=== PATIENT | male | born 1955 | race Caucasian/White ===

== ENCOUNTER 2024-01-29 10:03 | Inpatient (IN) | payer MEDICARE, MEDICAID, SELFPAY ==
[2024-01-29] VITALS (8 sets, daily range): BP systolic 134–151; BP diastolic 70–98; PULSE 74–86; RESP 16–26; TEMP 36.4–37.3; O2SAT 94–97; BMI 29.4
--- NOTE | ~2024-01-29 | XR_ITS ---
EXAMINATION: PORTABLE CHEST 1 VIEW CLINICAL INFORMATION: cough. COMPARISON: No recent pertinent prior studies are available for comparison. TECHNIQUE: Portable frontal view of the chest was obtained. FINDINGS: The lungs are hypoexpanded with mild peribronchial cuffing seen bilaterally. No focal infiltrate, effusion, edema, or pneumothorax. Cardiac and mediastinal silhouettes are within normal limits for technique. No acute bony abnormality seen. XR/XR chest 1V IMPRESSION: Hypoexpanded with mild peribronchial cuffing seen bilaterally. This could be seen in the setting of reactive or small airways disease.
--- NOTE | 2024-01-29 10:13 | ECG_ITS ---
Test Reason : SOB Blood Pressure : / mmHG Vent. Rate : 073 BPM Atrial Rate : 073 BPM P-R Int : 198 ms QRS Dur : 082 ms QT Int : 380 ms P-R-T Axes : 060 035 058 degrees QTc Int : 418 ms Artifact Normal sinus rhythm Normal ECG No previous ECGs available Referred By: Darwin Helton Electronically Signed By:William Piedra
--- NOTE | 2024-01-29 10:15 | ED.SOB ---
HPI - SOB/Dyspnea General Chief Complaint: Dyspnea Stated Complaint: SOB Time Seen by Provider: 01/29/24 10:12 Source: EMS Mode of arrival: EMS History of Present Illness HPI Narrative: This is 68 years old male sent from long term with a chief complaint of shortness of breath, cough. Patient was placed on BiPAP by the paramedics because found to be hypoxic and in distress. Arrived with the BiPAP Patient has history of CVA, hypertension, schizophrenia, dysphagia, and COPD. . MD elicited complaint: shortness of breath and cough Onset (ago): day(s) (1) Timing: constant Severity: moderate Exacerbating factors: nothing Relieving factors: oxygen Associated symptoms: denies other symptoms Related Data Home Medications ?Medication ?Instructions ?Recorded ?Confirmed acetaminophen 325 mg tablet 650 mg PO Q6H PRN Fever Or Pain 01/29/24 01/29/24 aluminum-mag hydroxide-simethicone 30 ml PO QID PRN GERD 01/29/24 01/29/24 200 mg-200 mg-20 mg/5 mL oral susp amlodipine 10 mg tablet 10 mg PO DAILY 01/29/24 01/29/24 aspirin 81 mg capsule 81 mg PO DAILY 01/29/24 01/29/24 calcium carbonate 500 mg PO QIDACHS 01/29/24 01/29/24 clozapine 25 mg tablet (Clozaril) 75 mg PO BEDTIME 01/29/24 01/29/24 eucalyptus-menthol oral mucosal 1 niesha mucous membrane Q4H PRN Cough 01/29/24 01/29/24 lozenge fluphenazine HCl 10 mg tablet 10 mg PO DAILY 01/29/24 01/29/24 hydralazine 10 mg tablet 10 mg PO TID 01/29/24 01/29/24 lithium carbonate 450 mg 450 mg PO DAILY 01/29/24 01/29/24 tablet,extended release metoprolol succinate 50 mg 50 mg PO BID 01/29/24 01/29/24 tablet,extended release 24 hr mometasone 220 mcg/actuation(14 1 inh inhalation DAILY 01/29/24 01/29/24 doses) breath activated powder inhaler (Asmanex Twisthaler) multivitamin 1 tab PO DAILY 01/29/24 01/29/24 nicotine (polacrilex) 2 mg buccal 2 mg buccal Q1H PRN Smoking 01/29/24 01/29/24 lozenge Cessation pantoprazole 40 mg tablet,delayed 40 mg PO DAILY@0630 01/29/24 01/29/24 release (Protonix) sennosides 8.6 mg tablet (senna) 8.6 mg PO DAILY PRN Constipation 01/29/24 01/29/24 Allergies Allergy/AdvReac Type Severity Reaction Status Date / Time codeine Allergy Unknown Unknown Verified 01/29/24 10:25 cephalexin [From Keflex] Allergy Unknown Verified 01/29/24 10:25 cocaine Allergy Unknown Verified 01/29/24 10:43 spironolactone Allergy Unknown Verified 01/29/24 10:25 Review of Systems Constitutional: Constitutional: Reports no additional constitutional complaints ENT: Reports system reviewed and no additional complaints, except as documented Cardiovascular: Cardiovascular: Reports no additional cardiovascular complaints Respiratory: Respiratory: Reports cough and Denies stridor [facility] Past Medical History [facility] Narrative: Schizophrenia, hypertension, CVA,,COPD Medical History GERD (gastroesophageal reflux disease) Hypertensive retinopathy Hyperlipidemia Aphasia Dysphagia CVA (cerebral vascular accident) Hemiplegia of 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 Urinary and fecal incontinence BPH w urinary obs/LUTS Hypertension Social History Social History Advance Directives: No Advance Directives Information Provided: No Do you have a plan to hurt others: No Plan Physical Exam Vital Signs: Vital Signs: Last Vital Signs Temp 97.6 F 01/29/24 12:09 Pulse 74 01/29/24 12:09 Resp 16 01/29/24 12:09 BP 148/95 H 01/29/24 12:09 Pulse Ox 94 01/29/24 12:09 O2 Del Method Nasal Cannula 01/29/24 12:09 O2 Flow Rate 2 01/29/24 12:09 Oxygen Flow Rate 3 01/29/24 10:24 BMI result Body Mass Index 29.4 Patient is in iosg-no-nvwdnadt distress on the BiPAP Const: General: well developed and alert Nutritional Appearance: overweight HEENT: Head: Yes normal to inspection General nose exam: Normal external nose present Face and sinus: Yes normal facial exam Neck: Neck: Yes normal visual inspection Chest: Chest palpation & inspection: normal inspection of the chest Resp: Effort & Inspection: Actively coughing Auscultation: rhonchi Cardio: Jugular venous distension: no JVD Palpation: normal PMI Rate: regular rate Rhythm: regular rhythm GI: Inspection: Yes normal to inspection Palpation (GI): Soft to palpation Skin: General skin exam: no rashes or lesions noted Neuro: General: other (Awake alert ) Medications Administered Generic Name Dose Route Start Last Admin Trade Name Freq PRN Reason Stop Dose Admin Enoxaparin Sodium 40 mg 01/29/24 12:45 01/29/24 15:01 Enoxaparin Sodium 40 Mg/0.4 Ml Syringe SUBCUT 40 mg Q24H ZEFERINO Administration Sodium Chloride 1,000 mls @ 100 mls/hr 01/29/24 12:45 01/29/24 13:11 Ns IVCONT 100 mls/hr .Q10H ZEFERINO Administration Methylprednisolone Sodium Succinate 40 mg 01/29/24 12:45 01/29/24 15:01 Methylprednisolone Sod Succ 40 Mg/Ml Vial IVPUSH 40 mg Q12H ZEFERINO Administration Discontinued Medications Generic Name Dose Route Start Last Admin Trade Name Freq PRN Reason Stop Dose Admin Albuterol Sulfate 2.5 mg/ 0 mg 01/29/24 10:39 01/29/24 11:13 Albuterol/Ipratropium 3 ml INHALE 01/29/24 10:40 5 dose ONCE ONE Administration Doxycycline Hyclate 100 mg/ 250 mls @ 166.67 mls/hr 01/29/24 11:23 01/29/24 12:14 Sodium Chloride IV 01/29/24 12:52 166.67 mls/hr ONCE ONE Administration Medical Decision Making Medical Decision Making [facility] Narrative: Patient presented with shortness of breath pleasant BiPAP at the by the vocal performer will do chest x-ray Differential Diagnosis Differential Diagnoses: The differential diagnosis associated with the presentation includes Pneumonia/CHF/pleural effusion Consult Healthcare Provider Management of the patient was discussed with: Hospitalist Lab Data [facility] Lab Attestation statement: I reviewed the patient's lab results. 01/29/24 10:38 01/29/24 10:38 Labs: Lab Results 01/29/24 01/29/24 01/29/24 Range/Units 10:38 10:41 11:57 WBC 17.4 H (4.8-10.8) X10*3/uL RBC 4.38 L (4.60-5.80) X10*6/uL Hgb 13.1 L (14.0-18.0) g/dl Hct 39.5 L (42.0-52.0) % MCV 90.2 (80.0-98.0) fL MCH 29.9 (27.0-33.0) pg MCHC 33.2 (31.0-36.0) g/dl RDW 13.1 (11.0-16.0) % Plt Count 309 (160-400) X10*3/uL MPV 9.2 L (9.4-12.4) fL Immature Gran % (Auto) 0.5 H (0.0-0.4) % Neut % (Auto) 83.0 H (45-73) % Lymph % (Auto) 5.8 L (20-40) % [place] % (Auto) 8.6 (2-11) % Eos % (Auto) 1.8 (0-4) % Baso % (Auto) 0.3 (0-2) % Lymph # (Auto) 1.0 L (1.2-4.9) X10*3/uL [place] # (Auto) 1.5 H (0.1-1.2) X10*3/uL Eos # (Auto) 0.3 (0.0-0.4) X10*3/uL Baso # (Auto) 0.1 (0.0-0.2) X10*3/uL Abs Immat Gran (auto) 0.09 H (0.00-0.03) X10*3/uL Absolute Neuts (auto) 14.4 H (2.0-8.3) x10*3/uL Absolute Nucleated RBC 0.000 (0.0-0.012) X10*3/uL Nucleated RBC % (auto) 0.0 (0.0-0.2) /100WBC VBG pH 7.42 (7.32-7.43) VBG pCO2 44 mmHg VBG pO2 66 mmHg VBG HCO3 28 H (22-26) mmol/L VBG O2 Saturation 91.0 % VBG Base Excess 3.7 mmol/L Sodium 141 (135-145) mmol/L Potassium 4.1 (3.3-5.1) mmol/L Chloride 107 (96-108) mmol/L Carbon Dioxide 24 (22-29) mmol/L Anion Gap 14 (12-20) BUN 27 H (9-16) mg/dL Creatinine 2.09 H (0.5-1.4) mg/dL Estim Creat Clear Calc 36.5 Estimated GFR 32 Random Glucose 140 H (60-115) mg/dL Lactic Acid 0.6 (0.5-2.0) mmol/L Calcium 10.3 H (8.4-10.2) mg/dL Total Bilirubin 0.2 (0.0-1.0) mg/dL AST 11 (5-37) U/L ALT 11 (0-40) U/L Alkaline Phosphatase 79 (39-117) U/L Troponin I High Sens 3.8 (<3.5-35.0) ng/L B-Natriuretic Peptide 52 (<100) pg/mL Total Protein 8.2 H (6.5-8.0) g/dL Albumin 4.0 (3.5-5.0) g/dL COVID-19 (DOTTY) Negative (Negative) COVID-19 Clin Com See Note ABG Data Attestation ABG: I personally reviewed and interpreted this ABG as follows: Interpretation: Mild hypoxia Independent Interpretation I performed an independent interpretation of an: Plain X-Ray Radiology Impression Discussion of test interpretation with radiology: I have reviewed the radiologist's reading. Independent Historian Clinical information obtained from an independent historian. History obtained from or confirmed by: EMS long term record Tests considered The following testing was considered but not selected: ct scan chest Critical Care Time Critical Care Time Critical Care Time: Yes Total Critical Care Time: 60 Attestation: Patient was placed in BiPAP at a vocal performer arrived on BiPAP Discharge Plan Discharge Clinical Impression: Acute dyspnea Patient Disposition: Admitted As Inpatient Interventions: Admission Worksheet (ED) Last Done: 01/29/24 14:43
[2024-01-29 10:44] LABS: MANUAL DIFF FLAG NO
[2024-01-29 10:46] LABS: Basophils Absolute Auto 0.1 X10*3/uL (0.0-0.2); Basophils Percent Auto 0.3 % (0-2); Eosinophils Absolute Auto 0.3 X10*3/uL (0.0-0.4); Eosinophils Percent Auto 1.8 % (0-4); Hematocrit 39.5 % (42.0-52.0); Hemoglobin 13.1 g/dl (14.0-18.0); Imm Gran Abs Auto 0.09 X10*3/uL (0.00-0.03); Imm Gran Pct Auto 0.5 % (0.0-0.4); Lymphocytes Percent Auto 5.8 % (20-40); Mean Corpuscular HGB Conc 33.2 g/dl (31.0-36.0); Mean Corpuscular Hemoglobin 29.9 pg (27.0-33.0); Mean Corpuscular Volume 90.2 fL (80.0-98.0); Mean Platelet Volume 9.2 fL (9.4-12.4); Monocytes Absolute Auto 1.5 X10*3/uL (0.1-1.2); Monocytes Percent Auto 8.6 % (2-11); Neutrophils Absolute Auto 14.4 x10*3/uL (2.0-8.3); Platelet Count 309 X10*3/uL (160-400); Red Blood Count 4.38 X10*6/uL (4.60-5.80); Red Cell Distribution Width 13.1 % (11.0-16.0); White Blood Count 17.4 X10*3/uL (4.8-10.8)
[2024-01-29 10:48] LABS: Venous Blood Gas Refer to POC result
[2024-01-29 10:50] LABS: VBG Base Excess 3.7 mmol/L; VBG HCO3 28 mmol/L (22-26); VBG pCO2 44 mmHg; VBG pH 7.42 (7.32-7.43); VBG pO2 66 mmHg
[2024-01-29 11:00] LABS: Alanine Aminotransferase 11 U/L (0-40); Alkaline Phosphatase 79 U/L (39-117); Anion Gap 14 (12-20); Aspartate Amino Transferase 11 U/L (5-37); Bilirubin Total 0.2 mg/dL (0.0-1.0); Blood Urea Nitrogen 27 mg/dL (9-16); Calcium 10.3 mg/dL (8.4-10.2); Carbon Dioxide 24 mmol/L (22-29); Chloride 107 mmol/L (96-108); Creatinine Clr Calc Pharmacy 36.5; Estimated Glomerular Filt Rate 32; Glucose Random 140 mg/dL (60-115); Potassium 4.1 mmol/L (3.3-5.1); Sodium 141 mmol/L (135-145); Total Protein 8.2 g/dL (6.5-8.0)
[2024-01-29 11:06] LABS: B Type Natriuretic Peptide 52 pg/mL (<100)
[2024-01-29 11:07] LABS: Troponin-I High Sensitivity 3.8 ng/L (<3.5-35.0)
[2024-01-29] MEDS: Albuterol Sulfate 2.5 MG, Albuterol/Iprat 2.5/0.5MG 3 ML 3 ML INHALE (11:13)
--- NOTE | 2024-01-29 11:15 | PC.NURSE ---
upon arrival, patient found to be 95% on 3L - respiratory at bedside. respiratory able to suction patient and remove clear thick sputum. IV established, labs obtained and sent. patient history of dysphagia/aphasia difficult to understand patient.
[2024-01-29 11:47] LABS: COVID-19 Test Negative (Negative); IDNOW Serial# 6674DD1D
[2024-01-29 12:12] LABS: Lactic Acid 0.6 mmol/L (0.5-2.0)
--- NOTE | 2024-01-29 12:13 | P.HPHOSP_ITS ---
History of Present Illness Date of Service: 01/29/24 Attending physician on admission: [facility] Chief Complaint: sob, cough 68-year-old male with history of 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, GERD, BPH with LUTS, urinary and fecal incontinence, schizophrenia, aphasia, chronic dysphagia, hypertension, hyperlipidemia, hypertensive retinopathy and CKD stage 3 who presented to the ED via EMS from [facility] where he resides for evaluation of right upper lobe bronchi, cough, and increased work of breathing noted this morning. The patient is aphasic at baseline is unable to provide history. History obtained from [facility] chart and ED provider. On arrival, the patient was on BiPAP but has been weaned to 2 L supplemental O2 via nasal cannula maintaining oximetry 94%. He was initially tachypneic but afebrile and no hypotension. He has leukocytosis of 17.4. Creatinine 2.09, baseline unknown, BUN 27. Electrolyte levels normal. Glucose 140. Lactic acid 0.6. Troponin 3.8, BNP 52. Negative for COVID-19. Chest x-ray shows hyperexpanded mild peribronchial cuffing seen bilaterally. In the ED, has received DuoNeb and doxycycline. 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 Urinary and fecal incontinence BPH w urinary obs/LUTS Hypertension Social History Housing: Senior Living Patient Tobacco Use Status: Former Tobacco user Use of substances other than those prescribed or required for medical reasons: Unable to respond Advance Directives: No Advance Directives Information Provided: No Do you have a plan to hurt others: No Plan Meds Allergies Allergy/AdvReac Type Severity Reaction Status Date / Time codeine Allergy Unknown Unknown Verified 01/29/24 10:25 cephalexin [From Keflex] Allergy Unknown Verified 01/29/24 10:25 cocaine Allergy Unknown Verified 01/29/24 10:43 spironolactone Allergy Unknown Verified 01/29/24 10:25 Active Medications: Current Medications Doxycycline Hyclate 100 mg/ (Sodium Chloride) 250 mls @ 166.67 mls/hr IV ONCE ONE Stop: 01/29/24 12:52 Home Medications ?Medication ?Instructions ?Recorded ?Confirmed ?Last Taken ?Type acetaminophen 325 mg tablet 650 mg PO Q6H PRN Fever Or Pain 01/29/24 01/29/24 Unknown History aluminum-mag hydroxide-simethicone 30 ml PO QID PRN GERD 01/29/24 01/29/24 Unknown History 200 mg-200 mg-20 mg/5 mL oral susp amlodipine 10 mg tablet 10 mg PO DAILY 01/29/24 01/29/24 01/29/24 06:30 History aspirin 81 mg capsule 81 mg PO DAILY 01/29/24 01/29/24 01/29/24 06:30 History calcium carbonate 500 mg PO QIDACHS 01/29/24 01/29/24 01/29/24 08:00 History clozapine 25 mg tablet (Clozaril) 75 mg PO BEDTIME 01/29/24 01/29/24 01/28/24 21:00 History eucalyptus-menthol oral mucosal 1 niesha mucous membrane Q4H PRN Cough 01/29/24 01/29/24 Unknown History lozenge fluphenazine HCl 10 mg tablet 10 mg PO DAILY 01/29/24 01/29/24 01/29/24 06:00 History hydralazine 10 mg tablet 10 mg PO TID 01/29/24 01/29/24 01/29/24 06:00 History lithium carbonate 450 mg 450 mg PO DAILY 01/29/24 01/29/24 01/29/24 06:30 History tablet,extended release metoprolol succinate 50 mg 50 mg PO BID 01/29/24 01/29/24 01/29/24 08:00 History tablet,extended release 24 hr mometasone 220 mcg/actuation(14 1 inh inhalation DAILY 01/29/24 01/29/24 01/28/24 20:00 History doses) breath activated powder inhaler (Asmanex Twisthaler) multivitamin 1 tab PO DAILY 01/29/24 01/29/24 01/29/24 06:30 History nicotine (polacrilex) 2 mg buccal 2 mg buccal Q1H PRN Smoking 01/29/24 01/29/24 01/28/24 08:15 History lozenge Cessation pantoprazole 40 mg tablet,delayed 40 mg PO DAILY@0630 01/29/24 01/29/24 01/29/24 06:30 History release (Protonix) sennosides 8.6 mg tablet (senna) 8.6 mg PO DAILY PRN Constipation 01/29/24 01/29/24 Unknown History Physical Exam 2 Vital Signs and Narrative: Vital Signs: Last Vital Signs Temp 97.6 F 01/29/24 12:09 Pulse 74 01/29/24 12:09 Resp 16 01/29/24 12:09 BP 148/95 H 01/29/24 12:09 Pulse Ox 94 01/29/24 12:09 O2 Del Method Nasal Cannula 01/29/24 12:09 O2 Flow Rate 2 01/29/24 12:09 Oxygen Flow Rate 3 01/29/24 10:24 BMI result Body Mass Index 29.4 Constitutional - Awake and Alert, No apparent distress Eyes - PERRLA, EOMI Cardiovascular - S1S2, RRR, No edema Respiratory - Normal lung expansion, Normal respiratory effort, No respiratory distress, audile gurgling, difficulty clearing throat, weak cough, bilteral rhonchi Gastrointestinal - NT / ND; +BS; No rebound or guarding Extremities - no calf tenderness bilaterally, no swelling Skin - Warm/Dry Neurological - Alert & nonverbal Results Labs 01/30/24 07:24 01/30/24 07:24 Labs: Laboratory Results - last 24 hr 01/29/24 01/29/24 01/29/24 10:38 10:41 11:57 MCV 90.2 MCH 29.9 MCHC 33.2 RDW 13.1 Plt Count 309 MPV 9.2 L Immature Gran % (Auto) 0.5 H Neut % (Auto) 83.0 H Lymph % (Auto) 5.8 L [place] % (Auto) 8.6 Eos % (Auto) 1.8 Baso % (Auto) 0.3 Lymph # (Auto) 1.0 L [place] # (Auto) 1.5 H Eos # (Auto) 0.3 Baso # (Auto) 0.1 Abs Immat Gran (auto) 0.09 H Absolute Neuts (auto) 14.4 H Absolute Nucleated RBC 0.000 Nucleated RBC % (auto) 0.0 VBG pH 7.42 VBG pCO2 44 VBG pO2 66 VBG HCO3 28 H VBG O2 Saturation 91.0 VBG Base Excess 3.7 Anion Gap 14 Estim Creat Clear Calc 36.5 Estimated GFR 32 Random Glucose 140 H Lactic Acid 0.6 Calcium 10.3 H Total Bilirubin 0.2 AST 11 ALT 11 Alkaline Phosphatase 79 Troponin I High Sens 3.8 B-Natriuretic Peptide 52 Total Protein 8.2 H Albumin 4.0 COVID-19 (DOTTY) Negative COVID-19 Clin Com See Note Imaging Radiologist's Impressions: Impressions Chest X-Ray 01/29/24 10:55 IMPRESSION: Hypoexpanded with mild peribronchial cuffing seen bilaterally. This could be seen in the setting of reactive or small airways disease. Assessment and Plan (1) Acute hypoxemic respiratory failure: Status: Acute (2) Aspiration into airway: Status: Acute Plan 68-year-old male with history of 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, GERD, BPH with LUTS, urinary and fecal incontinence, schizophrenia, aphasia, chronic dysphagia, hypertension, hyperlipidemia, hypertensive retinopathy and CKD stage 3 admitted for further management of acute hypoxemic respiratory failure due to suspected aspiration #acute hypoxemic respiratory failure due to suspected aspiration -leukocytosis 17.6. Tachypnea due to respiratory distress from aspiration resolved following bipap, no sepsis -Weaned from bipap, continue supplemental O2, wean as tolerated per protocol -CXR shows small airway disease. Pt refuses chest ct but suspect developing aspiration pnuemonia/pneumonitis -IV unasyn to cover for aspiration pneumonia given leukocytosis and productive cough (initiated 01/28) -IV methylprednisolone 40 mg bid -duonebs q4h -nasal suction prn/chest physiotherapy -keep npo for now, systems architect eval pending. On IVF for now. Per paperwork, on regular diet/thin liquids at baseline -follow cbc/cultures #HTN -continue hydralazine, metoprolol, amlodipine #GERD -tums prn, ppi #Schizophrenia -continue home meds DVT prophylaxis- lovenox full code Guardian- Angela Escobedo [phone] Pt requires inpt stay at least 2 midnights for management of acute hypoxemic respiratory failure with respiratory distress initially requiring bipap and will require iv abx/steroids for suspected evolving aspiration pneumonia/pneumonitis and close monitoring of respiratory status to monitor for and prevent decompensation. Quality Stroke Does the patient have a stroke diagnosis?: No VTE Prior VTE?: No VTE Risk Level:: Medical - moderate - high VTE Device Contraindication: Treatment Not Indicated VTE Drug Contraindication: N/A - Med Ordered
[2024-01-29] MEDS: Doxycycline Hyclate 100 MG in 0.9 % Sodium Chloride 250 ML 166.67 MG IV (12:14)
[2024-01-29] MEDS: 0.9 % Sodium Chloride 1,000 ML 100 ML IVCONT ×2 (13:11→22:47)
--- NOTE | 2024-01-29 13:50 | PHA.MEDREC ---
Pharmacy Consult ? Medication Reconciliation Pharmacy has completed the medication reconciliation. Used list from [facility].
--- NOTE | 2024-01-29 14:40 | PC.NURSE ---
patient continues to rest quietly in room, doxy still infusing at this time d/t patients bending his arm.
[2024-01-29] MEDS: methylPREDNISolone Sod Succ 40 MG/ML VIAL IVPUSH (15:01)
[2024-01-29] MEDS: Enoxaparin Sodium 40 MG/0.4 ML SYRINGE SUBCUT (15:01)
[2024-01-29] MEDS: Ampicillin Sodium/Sulbactam Na 3 GM in 0.9 % Sodium Chloride 100 ML IV ×2 (15:34→22:43)
[2024-01-29] MEDS: Albuterol/Iprat 2.5/0.5MG 3 ML AMPUL.NEB INHALE ×2 (16:29→19:32)
[2024-01-30] VITALS (12 sets, daily range): BP systolic 137–164; BP diastolic 83–98; PULSE 69–93; RESP 16–22; TEMP 36.2–36.9; O2SAT 93–96
[2024-01-30] MEDS: methylPREDNISolone Sod Succ 40 MG/ML VIAL IVPUSH ×2 (00:36→12:41)
[2024-01-30] MEDS: Ampicillin Sodium/Sulbactam Na 3 GM in 0.9 % Sodium Chloride 100 ML IV ×4 (03:36→21:53)
[2024-01-30 07:46] LABS: Basophils Percent Auto 0.1 % (0-2); Hematocrit 37.5 % (42.0-52.0); Hemoglobin 12.2 g/dl (14.0-18.0); Imm Gran Abs Auto 0.11 X10*3/uL (0.00-0.03); Imm Gran Pct Auto 0.6 % (0.0-0.4); Lymphocytes Absolute Auto 0.7 X10*3/uL (1.2-4.9); Lymphocytes Percent Auto 4.3 % (20-40); MANUAL DIFF FLAG SCAN; Mean Corpuscular HGB Conc 32.5 g/dl (31.0-36.0); Mean Corpuscular Volume 92.1 fL (80.0-98.0); Mean Platelet Volume 9.4 fL (9.4-12.4); Monocytes Absolute Auto 0.2 X10*3/uL (0.1-1.2); Monocytes Percent Auto 1.3 % (2-11); Neutrophils Percent Auto 93.7 % (45-73); Platelet Count 316 X10*3/uL (160-400); Red Blood Count 4.07 X10*6/uL (4.60-5.80); Red Cell Distribution Width 13.1 % (11.0-16.0); SCAN SMEAR FLAG 1
[2024-01-30 08:04] LABS: Anion Gap 13 (12-20); Blood Urea Nitrogen 28 mg/dL (9-16); Calcium 9.5 mg/dL (8.4-10.2); Carbon Dioxide 20 mmol/L (22-29); Chloride 114 mmol/L (96-108); Creatinine Clr Calc Pharmacy 41.7; Estimated Glomerular Filt Rate 37; Glucose Random 153 mg/dL (60-115); Potassium 4.3 mmol/L (3.3-5.1); Sodium 143 mmol/L (135-145)
[2024-01-30 08:06] LABS: SLIDE REVIEW VERIFIED
[2024-01-30 08:25] LABS: Appearance Urine Clear; Color Urine Yellow; Glucose Urine UA Negative (Negative); Leukocyte Esterase Urine Negative (Negative); Nitrite Urine Negative (Negative); UMIC TRIGGER UACC YES; Urine Blood Negative (Negative); Urine Ketones Negative (Negative); Urine Protein 30 (1+) mg/dL (Neg-Trace)
[2024-01-30 08:30] LABS: Bacteria Urine None Seen (None Seen); RBC Urine 0-2 /HPF (0-2); Squamous Epithelial Cell Urine 0-2 /HPF (0-2); WBC Urine 0-5 /HPF (0-5)
[2024-01-30] MEDS: Fluticasone Propionate 250 MCG BLST.W.DEV 1 PUFF INHALE ×2 (08:31→20:47)
[2024-01-30] MEDS: Albuterol/Iprat 2.5/0.5MG 3 ML AMPUL.NEB INHALE ×4 (08:31→20:47)
--- NOTE | 2024-01-30 09:14 | P.PNIM_ITS ---
Subjective Subjective Date of Service: 01/30/24 Interval History: f/u on acute hypoxic resp failure due to aspiration event/pna interval history: no respiratory distress, no hypoxia with oxygen. Physical Exam 2 Vital Signs: Vital Signs: Last Vital Signs Temp 97.8 F 01/30/24 08:00 Pulse 88 01/30/24 08:31 Resp 18 01/30/24 08:31 BP 164/89 H 01/30/24 08:00 Pulse Ox 93 01/30/24 08:00 O2 Del Method Nasal Cannula 01/30/24 08:00 O2 Flow Rate 3 01/30/24 08:00 Oxygen Flow Rate 3 01/29/24 10:24 BMI result Body Mass Index 29.4 Constitutional - Awake and Alert, No apparent distress , unable to converse with Cardiovascular - S1S2, RRR, No edema Respiratory - Normal lung expansion, Normal respiratory effort, no wheeze, diminished air entry sonam Gastrointestinal - NT / ND; +BS; No rebound or guarding Extremities - no calf tenderness bilaterally, no swelling Skin - Warm/Dry Neurological - Alert & nonverb at baseline with inaudible sounds Objective Data Active Medications Acetaminophen (Acetaminophen Supp 650 Mg Supp.Rect) 650 mg [place] Q6H PRN PRN Reason: Pain, Mild (Pain Scale 1-3), fever or headache Acetaminophen (Acetaminophen 325 Mg Tablet) 650 mg PO Q6H PRN PRN Reason: Fever Or Pain Al Hydroxide/Mg Hydroxide (Magnesium Hydrox/Alum Hydrox 30 Ml Oral.Susp) 30 ml PO QID PRN PRN Reason: GERD Albuterol/Ipratropium (Albuterol/Iprat 2.5/0.5mg 3 Ml Ampul.Neb) 3 ml INHALE RQ4H WHILE AWAKE [facility] Last Admin: 01/30/24 08:31 Dose: 3 ml Documented By: YVON Amlodipine Besylate (Amlodipine Besylate 10 Mg Tablet) 10 mg PO DAILY [facility]; Protocol Aspirin (Aspirin Enteric Coated 81 Mg Tablet.) 81 mg PO DAILY [facility] Calcium Carbonate (Calcium Carbonate 750 Mg Tab.Chew) 750 mg PO QIDACHS [facility] Last Admin: 01/29/24 23:12 Dose: Not Given Documented By: AD Non-Admin Reason: NPO Clozapine (Clozapine 25 Mg Tablet) 75 mg PO BEDTIME [facility] Last Admin: 01/29/24 23:13 Dose: Not Given Documented By: AD Non-Admin Reason: NPO Enoxaparin Sodium (Enoxaparin Sodium 40 Mg/0.4 Ml Syringe) 40 mg SUBCUT Q24H [facility] Last Admin: 01/29/24 15:01 Dose: 40 mg Documented By: EUGENIA Fluphenazine HCl (Fluphenazine Hcl 5 Mg Tablet) 10 mg PO DAILY [facility] Fluticasone Propionate (Fluticasone Propionate 250 Mcg Blst.W.Dev) 1 puff INHALE RBID [facility] Last Admin: 01/30/24 08:31 Dose: 1 puff Documented By: YVON Hydralazine HCl (Hydralazine Hcl 10 Mg Tablet) 10 mg PO TID [facility]; Protocol Last Admin: 01/29/24 23:13 Dose: Not Given Documented By: AD Non-Admin Reason: NPO Sodium Chloride (Ns) 1,000 mls @ 100 mls/hr IVCONT .Q10H [facility] Last Admin: 01/29/24 22:47 Dose: 100 mls/hr Documented By: OWEN Ampicillin Sodium/Sulbactam (Sodium 3 gm/ Sodium Chloride) 100 mls @ 200 mls/hr IV Q6H [facility] Last Infusion: 01/30/24 04:36 Dose: Infused Documented By: CASS [place] Carbonate ([place] Carbonate Er 450 Mg Tablet.Er) 450 mg PO DAILY [facility] Magnesium Hydroxide (Milk Of Magnesia 30 Ml Oral.Susp) 30 ml PO DAILY PRN PRN Reason: Constipation Methylprednisolone Sodium Succinate (Methylprednisolone Sod Succ 40 Mg/Ml Vial) 40 mg IVPUSH Q12H [facility] Last Admin: 01/30/24 00:36 Dose: 40 mg Documented By: AD Metoprolol Succinate (Metoprolol Succinate Er 50 Mg Tab.Er.24h) 50 mg PO BID [facility]; Protocol Last Admin: 01/29/24 23:13 Dose: Not Given Documented By: AD Non-Admin Reason: NPO Multivitamins/Vitamin C (Multivitamin Tablet) 1 tab PO DAILY [facility] Nicotine Polacrilex (Nicotine Polacrilex Lozenge 2 Mg Lozenge) 2 mg BUCCAL Q1H PRN PRN Reason: Smoking Cessation Omeprazole (Omeprazole 20 Mg Capsule.Dr) 20 mg PO DAILY@0630 [facility] Last Admin: 01/30/24 05:38 Dose: Not Given Documented By: AD Non-Admin Reason: NPO Ondansetron HCl (Ondansetron Hcl 4 Mg/2 Ml Vial) 4 mg IVPUSH Q8H PRN PRN Reason: Nausea and Vomiting Senna (Sennosides 8.6 Mg Tablet) 8.6 mg PO DAILY PRN PRN Reason: Constipation Labs 01/30/24 07:24 01/30/24 07:24 Labs: Laboratory Results - last 24 hr 01/29/24 01/29/24 01/29/24 10:38 10:41 11:57 MCV 90.2 MCH 29.9 MCHC 33.2 RDW 13.1 Plt Count 309 MPV 9.2 L Immature Gran % (Auto) 0.5 H Neut % (Auto) 83.0 H Lymph % (Auto) 5.8 L [place] % (Auto) 8.6 Eos % (Auto) 1.8 Baso % (Auto) 0.3 Lymph # (Auto) 1.0 L [place] # (Auto) 1.5 H Eos # (Auto) 0.3 Baso # (Auto) 0.1 Abs Immat Gran (auto) 0.09 H Absolute Neuts (auto) 14.4 H Absolute Nucleated RBC 0.000 Nucleated RBC % (auto) 0.0 Smear Tech's Comments VBG pH 7.42 VBG pCO2 44 VBG pO2 66 VBG HCO3 28 H VBG O2 Saturation 91.0 VBG Base Excess 3.7 Anion Gap 14 Estim Creat Clear Calc 36.5 Estimated GFR 32 Random Glucose 140 H Lactic Acid 0.6 Calcium 10.3 H Total Bilirubin 0.2 AST 11 ALT 11 Alkaline Phosphatase 79 Troponin I High Sens 3.8 B-Natriuretic Peptide 52 Total Protein 8.2 H Albumin 4.0 Urine Color Urine Appearance Urine pH Ur Specific [place] Urine Protein Urine Glucose (UA) Urine Ketones Urine Blood Urine Nitrite Ur Leukocyte Esterase Urine RBC Urine WBC Ur Squamous Epith Cells Urine Bacteria Hyaline Casts COVID-19 (DOTTY) Negative COVID-19 Clin Com See Note 01/30/24 01/30/24 07:24 07:50 MCV 92.1 MCH 30.0 MCHC 32.5 RDW 13.1 Plt Count 316 MPV 9.4 Immature Gran % (Auto) 0.6 H Neut % (Auto) 93.7 H Lymph % (Auto) 4.3 L [place] % (Auto) 1.3 L Eos % (Auto) 0.0 Baso % (Auto) 0.1 Lymph # (Auto) 0.7 L [place] # (Auto) 0.2 Eos # (Auto) 0.0 Baso # (Auto) 0.0 Abs Immat Gran (auto) 0.11 H Absolute Neuts (auto) 16.0 H Absolute Nucleated RBC 0.000 Nucleated RBC % (auto) 0.0 Smear Tech's Comments VERIFIED VBG pH VBG pCO2 VBG pO2 VBG HCO3 VBG O2 Saturation VBG Base Excess Anion Gap 13 Estim Creat Clear Calc 41.7 Estimated GFR 37 Random Glucose 153 H Lactic Acid Calcium 9.5 D Total Bilirubin AST ALT Alkaline Phosphatase Troponin I High Sens B-Natriuretic Peptide Total Protein Albumin Urine Color Yellow Urine Appearance Clear Urine pH 6.0 Ur Specific [place] 1.020 Urine Protein 30 (1+) H Urine Glucose (UA) Negative Urine Ketones Negative Urine Blood Negative Urine Nitrite Negative Ur Leukocyte Esterase Negative Urine RBC 0-2 Urine WBC 0-5 Ur Squamous Epith Cells 0-2 Urine Bacteria None Seen Hyaline Casts 3-5 COVID-19 (DOTTY) COVID-19 Clin Com Assessment and Plan (1) SHYANN (acute kidney injury): Status: Acute (2) Acute hypoxemic respiratory failure: Status: Acute (3) Aspiration into airway: Status: Acute (4) Acute dyspnea: Status: Acute Plan 68-year-old male with history of 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, GERD, BPH with LUTS, urinary and fecal incontinence, schizophrenia, aphasia, chronic dysphagia, hypertension, hyperlipidemia, hypertensive retinopathy and CKD stage 3 admitted for further management of acute hypoxemic respiratory failure due to suspected aspiration #acute hypoxemic respiratory failure due to suspected aspiration PNA, CXR show airway disease, did not cooperate with CT chest -leukocytosis 17 unchanged (possibly due to steroid), Tachypnea due to respiratory distress from aspiration resolved following bipap, no sepsis -O2 with goal of 92 to 94% -IV unasyn to cover for aspiration pneumonia, monitor wbc -IV methylprednisolone 40 mg bid and luis armando rapidly -duonebs q4h -nasal suction prn/chest physiotherapy -dysphagia diet per SLT NND2, honey thick liquid #HTN -continue hydralazine, metoprolol, amlodipine and adjust as needed #GERD -tums prn, ppi #Schizophrenia -continue home meds DVT prophylaxis- lovenox full code Guardian- Angela Escobedo [phone] need for inpatient: management of acute hypoxemic respiratory failure with respiratory distress initially requiring bipap and will require iv abx/steroids for suspected evolving aspiration pneumonia/pneumonitis and close monitoring of respiratory status to monitor for and prevent decompensation. Quality Stroke Does the patient have a stroke diagnosis?: No VTE Prior VTE?: No VTE Risk Level:: Medical - moderate - high VTE Device Contraindication: Treatment Not Indicated VTE Drug Contraindication: N/A - Med Ordered
--- NOTE | 2024-01-30 09:16 | MHC.SL.SWA ---
Speech Pathologist Impression: Risk of aspiration, oropharyngeal dysphagia Risk of Aspiration Due to: Neurological Condition Dysphasia Diet Status: UPGRADE from NPO, start on NDD2/HTL Liquid Consistency and Strategies for Safe Swallow: Liquid Intake Recommendation: Honey Thick Liquid Intake Strategies: Small Sips No Straws Solid Food Consistency: Dietary Recommendations: Grnd/Mech Altered (NDD2) Additional Modifications to Solid Foods: Recommend UPGRADE from NPO, start on GROUND/MECH ALTERED (NDD2) diet with HONEY THICK liquids, pills to be CRUSHED in PUREE. Patient is able to feed himself, but evidences some impulsivity when left alone with food. Recommend direct supervision at meal time as well as standard aspiration precautions. Oral Medication Intake: Crushed with Puree Please contact the pharmacy regarding appropriate crushable or liquid drug formulations that are available whenever modified delivery is recommended. Compensatory Strategies and Precautions to be Taken for Safe Swallow: Sitting Upright (90 deg) No Straw Small Bites and Sips Alternate Liquids/Solids Rate of Ingestion Change Avoid Specific Foods Supervision While Eating and Drinking for Safe Swallow: Total Supervision (1:1) Foods to Avoid: Hard, sticky foods; mixed textures Swallowing Recommended Treatments: Compens. Strategy Educat. Recommendation for Speech: Inpatient Speech Therapy Comment: M-F PRN Frequency/Duration: Date Range for Service Req: Timeline to reassess: Veterinary Technician Assistant Clinican/Clinical Fellow: No Supervisory Statement: I have reviewed and agree with the student/clinical fellow's documentation: N/A Speech Language Pathologist: Daily Ocampo M.A., CCC-VEHICLE UPHOLSTERER
[2024-01-30 09:22] LABS: Adenovirus PCR Not Detected (Not Detect.); Bordetella parapertussis PCR Not Detected (Not Detect.); Bordetella pertussis PCR Not Detected (Not Detect.); Chlamydia pneumoniae PCR Not Detected (Not Detect.); Coronavirus 229E PCR Not Detected (Not Detect.); Coronavirus HKU1 PCR Not Detected (Not Detect.); Coronavirus NL63 PCR Not Detected (Not Detect.); Coronavirus OC43 PCR Not Detected (Not Detect.); Human metapneumovirus PCR Not Detected (Not Detect.); Influenza A PCR Not Detected (Not Detect.); Influenza B PCR Not Detected (Not Detect.); Mycoplasma pneumoniae PCR Not Detected (Not Detect.); Parainfluenza 1 PCR Not Detected (Not Detect.); Parainfluenza 2 PCR Not Detected (Not Detect.); Parainfluenza 3 PCR Not Detected (Not Detect.); Parainfluenza 4 PCR Not Detected (Not Detect.); RSV PCR Not Detected (Not Detect.); Rhino/Enterovirus PCR Not Detected (Not Detect.)
[2024-01-30] MEDS: 0.9 % Sodium Chloride 1,000 ML 100 ML IVCONT ×2 (09:22→21:52)
[2024-01-30] MEDS: Multivitamin TABLET 1 TAB PO (09:25)
[2024-01-30] MEDS: Lithium Carbonate ER 450 MG TABLET.ER PO (09:25)
[2024-01-30] MEDS: Calcium Carbonate 750 MG TAB.CHEW PO ×4 (09:25→21:54)
[2024-01-30] MEDS: amLODIPine Besylate 10 MG TABLET PO (09:25)
[2024-01-30] MEDS: hydrALAZINE HCl 10 MG TABLET PO ×3 (09:26→21:56)
[2024-01-30] MEDS: Aspirin Enteric Coated 81 MG TABLET.DR PO (09:26)
[2024-01-30] MEDS: fluPHENAZine HCl 5 MG TABLET 10 MG PO (09:26)
[2024-01-30] MEDS: Metoprolol Succinate ER 50 MG TAB.ER.24H PO ×2 (09:26→21:54)
[2024-01-30 10:12] LABS: SARS-CoV-2 PCR Not Detected (Not Detect.)
--- NOTE | 2024-01-30 11:58 | MHC.CM.PN ---
IMM 01/29. IMM addressed with pts sister/guardian December as pt with dx aphasia, and schizophrenia. Pt is a LTC resident of [facility] [place]. Discharge plan is or pt to return there via BLS once medically cleared. Guardianship paperwork copy requested from facility and pts sister/guardian. PCP: Dr. Tera Newberry
[2024-01-30] MEDS: cloZAPine 25 MG TABLET 75 MG PO (21:56)
[2024-01-31] VITALS (11 sets, daily range): BP systolic 133–163; BP diastolic 82–100; PULSE 57–89; RESP 16–20; TEMP 36–36.5; O2SAT 91–100
[2024-01-31] MEDS: methylPREDNISolone Sod Succ 40 MG/ML VIAL IVPUSH ×2 (00:07→13:21)
[2024-01-31] MEDS: Omeprazole 20 MG CAPSULE.DR PO (06:06)
[2024-01-31] MEDS: Ampicillin Sodium/Sulbactam Na 3 GM in 0.9 % Sodium Chloride 100 ML IV ×4 (06:07→22:38)
[2024-01-31] MEDS: Multivitamin TABLET 1 TAB PO (08:43)
[2024-01-31] MEDS: Aspirin Enteric Coated 81 MG TABLET.DR PO (08:43)
[2024-01-31] MEDS: fluPHENAZine HCl 5 MG TABLET 10 MG PO (08:43)
[2024-01-31] MEDS: Lithium Carbonate ER 450 MG TABLET.ER PO (08:44)
[2024-01-31] MEDS: hydrALAZINE HCl 10 MG TABLET PO ×3 (08:44→20:06)
[2024-01-31] MEDS: Metoprolol Succinate ER 50 MG TAB.ER.24H PO (08:44)
[2024-01-31] MEDS: amLODIPine Besylate 10 MG TABLET PO (08:44)
[2024-01-31] MEDS: Calcium Carbonate 750 MG TAB.CHEW PO ×4 (08:44→20:13)
[2024-01-31] MEDS: Albuterol/Iprat 2.5/0.5MG 3 ML AMPUL.NEB INHALE ×3 (11:47→19:48)
[2024-01-31] MEDS: Enoxaparin Sodium 40 MG/0.4 ML SYRINGE SUBCUT (13:21)
[2024-01-31 14:12] LABS: Hematocrit 35.8 % (42.0-52.0); Hemoglobin 11.8 g/dl (14.0-18.0); Mean Corpuscular Hemoglobin 30.2 pg (27.0-33.0); Mean Corpuscular Volume 91.6 fL (80.0-98.0); Mean Platelet Volume 9.4 fL (9.4-12.4); Platelet Count 335 X10*3/uL (160-400); Red Blood Count 3.91 X10*6/uL (4.60-5.80); Red Cell Distribution Width 13.4 % (11.0-16.0); White Blood Count 20.3 X10*3/uL (4.8-10.8)
[2024-01-31 14:28] LABS: Anion Gap 15 (12-20); Blood Urea Nitrogen 31 mg/dL (9-16); Calcium 9.4 mg/dL (8.4-10.2); Carbon Dioxide 22 mmol/L (22-29); Chloride 112 mmol/L (96-108); Creatinine Clr Calc Pharmacy 44.9; Estimated Glomerular Filt Rate 40; Glucose Random 183 mg/dL (60-115); Potassium 4.7 mmol/L (3.3-5.1); Sodium 144 mmol/L (135-145)
--- NOTE | 2024-01-31 14:28 | MHC.SPEECHCO ---
Pt seen after lunch. He completed the Puree items and Honey-Thickened Liquids, but did not touch his Ground/[facility] Altered (NDD2) Solids. When asked if wanted something else and became upset asking that the tray be taken from his room. Pt is currently stable on his diet, WEB COORDINATOR will f/u x1 to re-assess feasibility of upgrade.
[2024-01-31] MEDS: Fluticasone Propionate 250 MCG BLST.W.DEV 1 PUFF INHALE (19:48)
[2024-01-31] MEDS: cloZAPine 25 MG TABLET 75 MG PO (20:06)
[2024-01-31] MEDS: Metoprolol Succinate ER 25 MG TAB.ER.24H PO (20:07)
[2024-01-31] MEDS: Magnesium Hydrox/Alum Hydrox 30 ML ORAL.SUSP PO (22:39)
[2024-02-01] VITALS (11 sets, daily range): BP systolic 142–155; BP diastolic 84–92; PULSE 63–85; RESP 18–20; TEMP 36.3–36.9; O2SAT 92–98
[2024-02-01] MEDS: methylPREDNISolone Sod Succ 40 MG/ML VIAL IVPUSH ×2 (01:46→12:21)
[2024-02-01] MEDS: Ampicillin Sodium/Sulbactam Na 3 GM in 0.9 % Sodium Chloride 100 ML IV ×2 (03:43→11:12)
[2024-02-01] MEDS: Omeprazole 20 MG CAPSULE.DR PO (05:25)
[2024-02-01 06:45] LABS: Hematocrit 35.3 % (42.0-52.0); Hemoglobin 11.5 g/dl (14.0-18.0); Mean Corpuscular HGB Conc 32.6 g/dl (31.0-36.0); Mean Corpuscular Hemoglobin 29.9 pg (27.0-33.0); Mean Corpuscular Volume 91.7 fL (80.0-98.0); Mean Platelet Volume 9.4 fL (9.4-12.4); Platelet Count 331 X10*3/uL (160-400); Red Blood Count 3.85 X10*6/uL (4.60-5.80); Red Cell Distribution Width 13.2 % (11.0-16.0); White Blood Count 17.9 X10*3/uL (4.8-10.8)
[2024-02-01 07:00] LABS: Anion Gap 12 (12-20); Blood Urea Nitrogen 33 mg/dL (9-16); Calcium 9.2 mg/dL (8.4-10.2); Carbon Dioxide 25 mmol/L (22-29); Chloride 110 mmol/L (96-108); Creatinine Clr Calc Pharmacy 42.1; Estimated Glomerular Filt Rate 37; Glucose Random 138 mg/dL (60-115); Potassium 4.9 mmol/L (3.3-5.1); Sodium 142 mmol/L (135-145)
[2024-02-01] MEDS: Lithium Carbonate ER 450 MG TABLET.ER PO (08:42)
[2024-02-01] MEDS: fluPHENAZine HCl 5 MG TABLET 10 MG PO (08:42)
[2024-02-01] MEDS: Metoprolol Succinate ER 25 MG TAB.ER.24H PO (08:42)
[2024-02-01] MEDS: hydrALAZINE HCl 10 MG TABLET PO ×2 (08:43→16:08)
[2024-02-01] MEDS: amLODIPine Besylate 10 MG TABLET PO (08:43)
[2024-02-01] MEDS: Multivitamin TABLET 1 TAB PO (08:43)
[2024-02-01] MEDS: Aspirin Enteric Coated 81 MG TABLET.DR PO (08:43)
[2024-02-01] MEDS: Fluticasone Propionate 250 MCG BLST.W.DEV 1 PUFF INHALE (09:01)
[2024-02-01] MEDS: Albuterol/Iprat 2.5/0.5MG 3 ML AMPUL.NEB INHALE ×3 (09:01→15:32)
[2024-02-01] MEDS: Calcium Carbonate 750 MG TAB.CHEW PO ×2 (11:12→16:08)
--- NOTE | 2024-02-01 11:31 | PM.DS ---
DS: Providers Provider Date of Service: 02/01/24 Date of admission: 01/29/24 12:43 Primary care physician: Tera Newberry DO DS: Diagnosis Discharge Diagnosis (1) SHYANN (acute kidney injury): Status: Acute (2) Acute hypoxemic respiratory failure: Status: Acute (3) Aspiration into airway: Status: Acute (4) Acute dyspnea: Status: Acute DS: Summary Hospital Course Hospital Course: Admission hpi Chief Complaint: sob, cough 68-year-old male with history of 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, GERD, BPH with LUTS, urinary and fecal incontinence, schizophrenia, aphasia, chronic dysphagia, hypertension, hyperlipidemia, hypertensive retinopathy and CKD stage 3 who presented to the ED via EMS from [facility] where he resides for evaluation of right upper lobe bronchi, cough, and increased work of breathing noted this morning. The patient is aphasic at baseline is unable to provide history. History obtained from [facility] chart and ED provider. On arrival, the patient was on BiPAP but has been weaned to 2 L supplemental O2 via nasal cannula maintaining oximetry 94%. He was initially tachypneic but afebrile and no hypotension. He has leukocytosis of 17.4. Creatinine 2.09, baseline unknown, BUN 27. Electrolyte levels normal. Glucose 140. Lactic acid 0.6. Troponin 3.8, BNP 52. Negative for COVID-19. Chest x-ray shows hyperexpanded mild peribronchial cuffing seen bilaterally. In the ED, has received DuoNeb and doxycycline. Hospital course: #Acute hypoxic respiratory failure due to aspiration pneumia. The patient presented with a cough and shortness of breath, raising concern for aspiration pneumonia. He was hypoxic and required O2. A chest X-ray (CXR) was suggestive of pneumonia, likely aspiration pneumonia. He was initiated on IV Unasyn and admitted for further management. Additional management included IV steroids for a reactive process likely related to aspiration and bronchodilators. A CT scan was suggested but could not be performed as the patient was uncooperative. His initial WBC was 17, which increased to 20 and has since decreased to 17. The persistent high WBC is likely due to the steroid treatment. He also has some baseline chronic leukocytosis; the last WBC prior to admission on 01/22 was 15 per the SNF record. At this point, he is doing much better and will transition to oral Augmentin for a total of 7 days. He was evaluated by CRM MARKETING EXECUTIVE, who recommended a NND2 (puree) diet and honey-thick liquids. #Leukocytosis--has some chronic element and likely higher from penumonia and steroid, this should be repeated on outpatient basis. #HTN -continue hydralazine, metoprolol, amlodipine #GERD -tums prn, ppi #Schizophrenia -continue home meds CKD 3B with mild SHYANN--baseline creatine is 1.8 according to SNF record, his initial creatine was 2 and now 1.8 Time Attestation Discharge Coordination Time (in mins): 40 Quality: Safe Use of Opioids Does Pt have an Active Cancer Diagnosis on the Problem List?: No Quality: Stroke Does the patient have a stroke diagnosis?: No Physical Exam Vital Signs: Vital Signs: Last Vital Signs Temp 98.4 F 02/01/24 11:26 Pulse 72 02/01/24 11:28 Resp 20 02/01/24 11:28 BP 148/84 H 02/01/24 11:26 Pulse Ox 95 02/01/24 11:26 O2 Del Method Nasal Cannula 02/01/24 11:26 O2 Flow Rate 2 02/01/24 11:26 Oxygen Flow Rate 3 01/29/24 10:24 BMI result Body Mass Index 29.4 Constitutional - Awake and Alert, No apparent distress , unable to converse with Cardiovascular - S1S2, RRR, No edema Respiratory - Normal lung expansion, Normal respiratory effort, no wheeze, diminished air entry sonam Gastrointestinal - NT / ND; +BS; No rebound or guarding Extremities - no calf tenderness bilaterally, no swelling Skin - Warm/Dry Neurological - Alert & nonverb at baseline with inaudible sounds DS: Data Data Completed and Pending Labs on day of discharge: Laboratory Results - last 24 hr 01/31/24 02/01/24 02/01/24 14:05 06:05 06:06 WBC 20.3 H 17.9 H RBC 3.91 L 3.85 L Hgb 11.8 L 11.5 L Hct 35.8 L 35.3 L MCV 91.6 91.7 MCH 30.2 29.9 MCHC 33.0 32.6 RDW 13.4 13.2 Plt Count 335 331 MPV 9.4 9.4 Absolute Nucleated RBC 0.000 0.000 Nucleated RBC % (auto) 0.0 0.0 Sodium 144 142 Potassium 4.7 4.9 Chloride 112 H 110 H Carbon Dioxide 22 25 Anion Gap 15 12 BUN 31 H 33 H Creatinine 1.70 H 1.81 H Estim Creat Clear Calc 44.9 42.1 Estimated GFR 40 37 Random Glucose 183 H 138 H Calcium 9.4 9.2 Preliminary micro results at discharge 01/29/24 10:38 Blood Culture - Preliminary Blood - Venous No growth after 48 hours. 01/29/24 10:38 Blood Culture - Preliminary Blood - Venous No growth after 48 hours. Discharge Plan Discharge Anticipated Discharge Date/Time: 02/01/24 11:37 Patient Disposition: Xfer SNF Discharge Diagnosis: Acute hypoxic respiratory failure due to aspiration pneumonia Referrals: Tera Newberry DO [Primary Care Provider] - 1 Week Discharge Medications: New amoxicillin-pot clavulanate 875-125 mg Tablet 1 tab PO Q12H Qty: 6 0RF Continued multivitamin Tablet 1 tab PO DAILY hydralazine 10 mg Tablet 10 mg PO TID sennosides [senna] 8.6 mg Tablet 8.6 mg PO DAILY PRN (Reason: Constipation) acetaminophen 325 mg Tablet 650 mg PO Q6H MDD 3g PRN (Reason: Fever Or Pain) metoprolol succinate 50 mg Tablet Extended Release 24 Hr 50 mg PO BID fluphenazine HCl 10 mg Tablet 10 mg PO DAILY lithium carbonate 450 mg Tablet Extended Release 450 mg PO DAILY amlodipine 10 mg Tablet 10 mg PO DAILY pantoprazole [Protonix] 40 mg Tablet,Delayed Release (Dr/Ec) 40 mg PO DAILY@0630 calcium carbonate 500 mg calcium (1,250 mg) Tablet,Chewable 500 mg PO QIDACHS Rx Instructions: with meals and at bedtime alum-mag hydroxide-simeth 200-200-20 mg/5 mL Suspension 30 ml PO QID PRN (Reason: GERD) Rx Instructions: administer after meals and at bedtime clozapine [Clozaril] 25 mg Tablet 75 mg PO BEDTIME eucalyptus-menthol Lozenge 1 niesha MUCOUS MEMBRANE Q4H PRN (Reason: Cough) nicotine (polacrilex) 2 mg Lozenge 2 mg BUCCAL Q1H PRN (Reason: Smoking Cessation) Asmanex Twisthaler 220 mcg/ actuation (14) Aerosol Powdr Breath Activated 1 inh INHALATION DAILY aspirin 81 mg Capsule 81 mg PO DAILY Discharge Orders: Discharge Order (Routine); Ordered 02/01/24 Ordered By: Ricki Olmedo Diet: NND2, honey thick liquid Activity on Discharge: As tolerated Stand Alone Forms: Patient Portal Discharge page Print Language: French Care Plan Goals: recovery from aspiration pneumonia aspiration prevention Health Concerns: Aspiration pneumonia and aspriation risks Plan of Treatment: Take Augmentin as recommendded and follow up with your PCP in a week Check CBC and BMP in a week Assessment: see above Discharge Date/Time: 02/01/24 18:18
--- NOTE | 2024-02-01 11:51 | HO.PM.IMPN ---
Subjective Subjective Date of Service: 01/31/24 Interval History: f/u on acute hypoxic resp failure due to aspiration event/pna interval history: doing ok, no sob Physical Exam Vital Signs: Vital Signs: Selected Entries 01/31/24 19:39 Temperature 97.7 F Pulse Rate 82 Respiratory Rate 20 Blood Pressure 139/95 H Pulse Oximetry 91 L Constitutional - Awake and Alert, No apparent distress , unable to converse with Cardiovascular - S1S2, RRR, No edema Respiratory - Normal lung expansion, Normal respiratory effort, no wheeze, diminished air entry sonam Gastrointestinal - NT / ND; +BS; No rebound or guarding Extremities - no calf tenderness bilaterally, no swelling Skin - Warm/Dry Neurological - Alert & nonverb at baseline with inaudible sounds Objective Data Active Medications Acetaminophen (Acetaminophen Supp 650 Mg Supp.Rect) 650 mg [place] Q6H PRN PRN Reason: Pain, Mild (Pain Scale 1-3), fever or headache Acetaminophen (Acetaminophen 325 Mg Tablet) 650 mg PO Q6H PRN PRN Reason: Fever Or Pain Al Hydroxide/Mg Hydroxide (Magnesium Hydrox/Alum Hydrox 30 Ml Oral.Susp) 30 ml PO QID PRN PRN Reason: GERD Last Admin: 01/31/24 22:39 Dose: 30 ml Documented By: INDU Albuterol/Ipratropium (Albuterol/Iprat 2.5/0.5mg 3 Ml Ampul.Neb) 3 ml INHALE RQ4H WHILE AWAKE [facility] Last Admin: 02/01/24 11:26 Dose: 3 ml Documented By: BUSTER Amlodipine Besylate (Amlodipine Besylate 10 Mg Tablet) 10 mg PO DAILY [facility]; Protocol Last Admin: 02/01/24 08:43 Dose: 10 mg Documented By: CICI Amoxicillin/Clavulanate Potassium (Amoxicillin/Potassium Clav 875 Mg Tablet) 875 mg PO Q12H [facility] Aspirin (Aspirin Enteric Coated 81 Mg Tablet.) 81 mg PO DAILY [facility] Last Admin: 02/01/24 08:43 Dose: 81 mg Documented By: CICI Calcium Carbonate (Calcium Carbonate 750 Mg Tab.Chew) 750 mg PO QIDACHS [facility] Last Admin: 02/01/24 11:12 Dose: 750 mg Documented By: CICI Clozapine (Clozapine 25 Mg Tablet) 75 mg PO BEDTIME [facility] Last Admin: 01/31/24 20:06 Dose: 75 mg Documented By: INDU Enoxaparin Sodium (Enoxaparin Sodium 40 Mg/0.4 Ml Syringe) 40 mg SUBCUT Q24H [facility] Last Admin: 01/31/24 13:21 Dose: 40 mg Documented By: KENZIE Fluphenazine HCl (Fluphenazine Hcl 5 Mg Tablet) 10 mg PO DAILY [facility] Last Admin: 02/01/24 08:42 Dose: 10 mg Documented By: CICI Fluticasone Propionate (Fluticasone Propionate 250 Mcg Blst.W.Dev) 1 puff INHALE RBID [facility] Last Admin: 02/01/24 09:01 Dose: 1 puff Documented By: BUSTER Hydralazine HCl (Hydralazine Hcl 10 Mg Tablet) 10 mg PO TID [facility]; Protocol Last Admin: 02/01/24 08:43 Dose: 10 mg Documented By: CICI [place] Carbonate ([place] Carbonate Er 450 Mg Tablet.Er) 450 mg PO DAILY [facility] Last Admin: 02/01/24 08:42 Dose: 450 mg Documented By: CICI Magnesium Hydroxide (Milk Of Magnesia 30 Ml Oral.Susp) 30 ml PO DAILY PRN PRN Reason: Constipation Methylprednisolone Sodium Succinate (Methylprednisolone Sod Succ 40 Mg/Ml Vial) 40 mg IVPUSH Q12H [facility] Last Admin: 02/01/24 01:46 Dose: 40 mg Documented By: INDU Metoprolol Succinate (Metoprolol Succinate Er 25 Mg Tab.Er.24h) 25 mg PO BID [facility]; Protocol Last Admin: 02/01/24 08:42 Dose: 25 mg Documented By: CICI Multivitamins/Vitamin C (Multivitamin Tablet) 1 tab PO DAILY [facility] Last Admin: 02/01/24 08:43 Dose: 1 tab Documented By: CICI Nicotine Polacrilex (Nicotine Polacrilex Lozenge 2 Mg Lozenge) 2 mg BUCCAL Q1H PRN PRN Reason: Smoking Cessation Omeprazole (Omeprazole 20 Mg Capsule.Dr) 20 mg PO DAILY@0630 [facility] Last Admin: 02/01/24 05:25 Dose: 20 mg Documented By: INDU Ondansetron HCl (Ondansetron Hcl 4 Mg/2 Ml Vial) 4 mg IVPUSH Q8H PRN PRN Reason: Nausea and Vomiting Senna (Sennosides 8.6 Mg Tablet) 8.6 mg PO DAILY PRN PRN Reason: Constipation Labs 02/01/24 06:06 02/01/24 06:05 Labs: Laboratory Results - last 24 hr 01/31/24 02/01/24 02/01/24 14:05 06:05 06:06 MCV 91.6 91.7 MCH 30.2 29.9 MCHC 33.0 32.6 RDW 13.4 13.2 Plt Count 335 331 MPV 9.4 9.4 Absolute Nucleated RBC 0.000 0.000 Nucleated RBC % (auto) 0.0 0.0 Anion Gap 15 12 Estim Creat Clear Calc 44.9 42.1 Estimated GFR 40 37 Random Glucose 183 H 138 H Calcium 9.4 9.2 Microbiology Microbiology Results: Microbiology 01/29/24 10:38 Blood Culture - Preliminary Blood - Venous No growth after 48 hours. 01/29/24 10:38 Blood Culture - Preliminary Blood - Venous No growth after 48 hours. Assessment and Plan (1) SHYANN (acute kidney injury): Status: Acute (2) Acute hypoxemic respiratory failure: Status: Acute (3) Aspiration into airway: Status: Acute Plan 68-year-old male with history of 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, GERD, BPH with LUTS, urinary and fecal incontinence, schizophrenia, aphasia, chronic dysphagia, hypertension, hyperlipidemia, hypertensive retinopathy and CKD stage 3 admitted for further management of acute hypoxemic respiratory failure due to suspected aspiration #acute hypoxemic respiratory failure due to suspected aspiration PNA, CXR show airway disease, did not cooperate with CT chest. Initially requied bipap in the ED -leukocytosis 17 higher due to steroid, -IV unasyn to cover for aspiration pneumonia, monitor wbc -IV methylprednisolone 40 mg bid and luis armando rapidly, dc by next day -duonebs q4h -nasal suction prn/chest physiotherapy -dysphagia diet per COFFEE HOST recommends NND2, honey thick liquid #HTN -continue hydralazine, metoprolol, amlodipine and adjust as needed #GERD -tums prn, ppi #Schizophrenia -continue home meds #CKD/mild shyann, resolved. DVT prophylaxis- lovenox full code Guardian- Angela Escobedo [phone] need for inpatient:management of aspriation PNA with IV Abx, Late entry for DOS: 01/31/24 Quality Stroke Does the patient have a stroke diagnosis?: No VTE Prior VTE?: No VTE Risk Level:: Medical - moderate - high VTE Device Contraindication: Treatment Not Indicated VTE Drug Contraindication: N/A - Med Ordered
[2024-02-01] MEDS: Amoxicillin/Potassium Clav 875 MG TABLET PO (12:21)
--- NOTE | 2024-02-01 13:27 | MHC.SL.SWA ---
Risk of Aspiration Due to: Neurological Condition Dysphasia Diet Status: NO CHANGE Liquid Consistency and Strategies for Safe Swallow: Liquid Intake Recommendation: Honey Thick Liquid Intake Strategies: Small Sips No Straws Solid Food Consistency: Dietary Recommendations: Grnd/Mech Altered (NDD2) Oral Medication Intake: Crushed with Puree Please contact the pharmacy regarding appropriate crushable or liquid drug formulations that are available whenever modified delivery is recommended. Compensatory Strategies and Precautions to be Taken for Safe Swallow: Sitting Upright (90 deg) No Straw Small Bites and Sips Alternate Liquids/Solids Rate of Ingestion Change Supervision While Eating and Drinking for Safe Swallow: Total Supervision (1:1) Foods to Avoid: Hard, sticky foods; mixed textures Swallowing Recommended Treatments: Compens. Strategy Educat. Recommendation for Speech: Inpatient Speech Therapy Comment: Recommend pt continue w/ GROUND/MECH ALTERED solids (NDD2) and HONEY THICK liquids (NO STRAW). Continue w/ pills crushed in puree at this time. Pt requires FULL SUPERVISION for ALL PO. Ensure pt is seated in upright position. Aspiration precautions apply. Risk of aspiration likely secondary to unsafe eating behaviors. TECHNOLOGY EDUCATION INSTRUCTOR to continue to follow during hospitalization. TECHNOLOGY EDUCATION INSTRUCTOR tx at next level of care to be recommended. [employer] Middleware Developer Clinican/Clinical Fellow: No Supervisory Statement: I have reviewed and agree with the student/clinical fellow's documentation: N/A Speech Language Pathologist: Jennifer Leach M.A., [facility]-TECHNOLOGY EDUCATION INSTRUCTOR
--- NOTE | 2024-02-01 14:01 | MHC.CM.PN ---
Pt continues to require acute care for treatment of aspiration pneumonia with IV ABX. DCP is for him to return to [facility] via [facility].
--- NOTE | 2024-02-01 14:46 | MHC.CM.PN ---
Pt has been medically cleared, he will return to [facility] today via BLS, guardian, Angela Escobedo notified via VM message.
== END 2024-02-01 18:18 | disposition intermediate care facility (04) | DRG 177 ==
LOC: HO.ED 11:52 → HO.EDOVER 13:03 → HO.IMC 14:35
PROVIDERS: Admitting Provider Physician Assistant; Emergency Provider Emergency Medicine; PCP Hospitalist; Visit Provider Internal Medicine
DX: J69.0 Pneumonitis due to inhalation of food and vomit (principal); J96.01 Acute respiratory failure with hypoxia; I69.351 Hemiplegia and hemiparesis following cerebral infarction affecting right dominant side; N17.9 Acute kidney failure, unspecified; I12.9 Hypertensive chronic kidney disease with stage 1 through stage 4 chronic kidney disease, or unspecified chronic kidney disease; N18.32 Chronic kidney disease, stage 3b; H35.039 Hypertensive retinopathy, unspecified eye; K21.9 Gastro-esophageal reflux disease without esophagitis; F20.9 Schizophrenia, unspecified; Z20.822 Contact with and (suspected) exposure to COVID-19; R13.10 Dysphagia, unspecified; Z87.891 Personal history of nicotine dependence; Z79.82 Long term (current) use of aspirin; Z79.899 Other long term (current) drug therapy
CPT/HCPCS: 36415; 71045; 80048; 80053; 81001; 82803; 83605; 83880; 84484; 85025; 85027; 87040; 87633; 87635; 92526; 92610; 93005; 94640; 99285; J0295; J1650; J2919

== ENCOUNTER → 2024-01-29 10:13 | Outpatient (BNV) | payer MEDICARE, MEDICAID, SELFPAY | PROVIDERS: Admitting Provider Physician Assistant; Emergency Provider Emergency Medicine; PCP Hospitalist; Visit Provider Internal Medicine Cardiovascular Disease | DX: R06.02 Shortness of breath (principal) | CPT/HCPCS: 93010 ==

== ENCOUNTER → 2024-01-29 12:43 | Outpatient (BNV) | payer MEDICARE, MEDICAID, SELFPAY | PROVIDERS: Admitting Provider Physician Assistant; Emergency Provider Emergency Medicine; PCP Hospitalist; Visit Provider Physician Assistant | DX: N17.9 Acute kidney failure, unspecified (principal); J96.01 Acute respiratory failure with hypoxia; T17.908A Unspecified foreign body in respiratory tract, part unspecified causing other injury, initial encounter; R06.00 Dyspnea, unspecified | CPT/HCPCS: 99223; 99232; 99239; 99499 ==

== ENCOUNTER 2024-07-07 23:33 | Emergency (ER) | payer MEDICARE, MEDICAID, SELFPAY ==
--- NOTE | 2024-07-07 | ECG_ITS ---
Test Reason : FALL Blood Pressure : / mmHG Vent. Rate : 058 BPM Atrial Rate : 058 BPM P-R Int : 218 ms QRS Dur : 078 ms QT Int : 412 ms P-R-T Axes : 073 028 049 degrees QTc Int : 404 ms Sinus bradycardia with 1st degree A-V block Otherwise normal ECG When compared with ECG of 29-JAN-2024 10:44, No significant change was found Referred By: Generic ED Physician Electronically Signed By:AGUILAR RAGSDALE MD
--- NOTE | ~2024-07-07 | XR_ITS ---
EXAMINATION: XR CHEST CLINICAL INFORMATION: Cough; history of fall. COMPARISON: Prior chest radiographs, most recently 01/29/2024. TECHNIQUE: Frontal view of the chest was obtained. FINDINGS: The heart, great vessels, pulmonary vasculature and mediastinum are normal. The lungs show no infiltrate, effusion or pneumothorax. Lung volumes are mildly diminished. No acute osseous abnormality is seen. Multiple old, healed rib fractures are again noted. XR/XR chest 1V IMPRESSION: No active cardiopulmonary disease. Lung volumes are mildly diminished. Electronically signed by: Jose Juan Alexis MD 07/08/2024 12:33 AM [facility]
[2024-07-07 23:39] VITALS: BP 170/120; PULSE 103; O2SAT 94
[2024-07-07 23:48] VITALS: BP 176/106; PULSE 65; RESP 20; TEMP 36.6; O2SAT 96; BMI 27.9
--- NOTE | 2024-07-08 00:06 | ED_ITS ---
HPI - General Adult General Chief complaint: General Medical Stated complaint: From Faciilty Fall at 430pm and elveated BP Time Seen by Provider: 07/08/24 00:05 Source: patient Limitations: other (Dysarthria secondary to CVA) History of Present Illness ED Provider: Val Hill PA-C HPI narrative: 68-year-old male with a history of CVA with subsequent aphasia, dysarthria, dysphagia and right hemiplegia now wheelchair-bound at baseline, hypertension, hyperlipidemia, hypertensive retinopathy, chronic kidney disease stage 3, schizophrenia, who presents from [facility] given concern for hypertension and hypoxia. Per EMS, the patient fell while transferring from his bed to the wheelchair. He dropped to the floor onto his bottom, there was no head strike there was no loss consciousness. The incident occurred at 4:30 p.m. yesterday. Prior to arrival, longterm report indicates that the patient was hypertensive to 163 systolic and that his ?oxygen was low?. Per the patient, he states they refused to give him his prescribed hydralazine today; the patient takes hydralazine 3 times a day, he only took his morning dose. At the patient has no physical concerns or complaints at this time, he does not understand why he was sent in for assessment. Related Data Home Medications ?Medication ?Instructions ?Recorded ?Confirmed acetaminophen 325 mg tablet 650 mg PO Q6H PRN Fever Or Pain 01/29/24 01/29/24 aluminum-mag hydroxide-simethicone 30 ml PO QID PRN GERD 01/29/24 01/29/24 200 mg-200 mg-20 mg/5 mL oral susp amlodipine 10 mg tablet 10 mg PO DAILY 01/29/24 01/29/24 aspirin 81 mg capsule 81 mg PO DAILY 01/29/24 01/29/24 calcium carbonate 500 mg PO QIDACHS 01/29/24 01/29/24 clozapine 25 mg tablet (Clozaril) 75 mg PO BEDTIME 01/29/24 01/29/24 eucalyptus-menthol oral mucosal 1 niesha mucous membrane Q4H PRN Cough 01/29/24 01/29/24 lozenge fluphenazine HCl 10 mg tablet 10 mg PO DAILY 01/29/24 01/29/24 hydralazine 10 mg tablet 10 mg PO TID 01/29/24 01/29/24 lithium carbonate 450 mg 450 mg PO DAILY 01/29/24 01/29/24 tablet,extended release metoprolol succinate 50 mg 50 mg PO BID 01/29/24 01/29/24 tablet,extended release 24 hr mometasone 220 mcg/actuation(14 1 inh inhalation DAILY 01/29/24 01/29/24 doses) breath activated powder inhaler (Asmanex Twisthaler) multivitamin 1 tab PO DAILY 01/29/24 01/29/24 nicotine (polacrilex) 2 mg buccal 2 mg buccal Q1H PRN Smoking 01/29/24 01/29/24 lozenge Cessation pantoprazole 40 mg tablet,delayed 40 mg PO DAILY@0630 01/29/24 01/29/24 release (Protonix) sennosides 8.6 mg tablet (senna) 8.6 mg PO DAILY PRN Constipation 01/29/24 01/29/24 Previous Rx's ?Medication ?Instructions ?Recorded amoxicillin 875 mg-potassium 1 tab PO Q12H #6 tabs 02/01/24 clavulanate 125 mg tablet Allergies Allergy/AdvReac Type Severity Reaction Status Date / Time codeine Allergy Unknown Unknown Verified 07/07/24 23:50 cephalexin [From Keflex] Allergy Unknown Verified 07/07/24 23:50 cocaine Allergy Unknown Verified 07/07/24 23:50 spironolactone Allergy Unknown Verified 07/07/24 23:50 Review of Systems Review of Systems: Yes all other systems are reviewed and are negative Constitutional: Constitutional: Denies fatigue, Denies fever(s) and Denies headache(s) Eyes: Eyes: Denies change in vision ENT: Denies headache(s) and Denies neck pain Cardiovascular: Cardiovascular: Denies chest pain and Denies dyspnea Respiratory: Respiratory: Denies chest congestion, Denies cough and Denies dyspnea Gastrointestinal: Gastrointestinal: Denies abdominal pain and Denies nausea Musculoskeletal: Musculoskeletal: Denies back pain and Denies neck pain Neurologic: Denies headache(s) Endocrine: Endocrine: Denies fatigue PMF Past Medical History Attestation statement: The following information was validated with the patient. Medical History GERD (gastroesophageal reflux disease) Hypertensive retinopathy Hyperlipidemia Aphasia Dysphagia CVA (cerebral vascular accident) Hemiplegia of 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 Urinary and fecal incontinence BPH w urinary obs/LUTS Hypertension Social History Social History Housing: [facility]way Patient Tobacco Use Status: Former Tobacco user Advance Directives: No Advance Directives Information Provided: Yes service: No Physical Exam ED Vital Signs: Vital Signs - 24 hr 07/07/24 23:48 Temperature 97.9 F Pulse Rate 65 Respiratory Rate 20 Blood Pressure 176/106 H Pulse Oximetry 96 Oxygen Delivery Method Room Air BMI result Body Mass Index 27.9 Const Other: Alert, no sign of head trauma on exam Orientation/consciousness: patient oriented x3 Resp Other: Nonlabored respiration Cardio Other: Normal peripheral perfusion Skin Other: Warm dry no rash Neuro Other: Dysarthria noted General: patient oriented x3, moves all extremities and no focal motor deficits Psych Other: Cooperative Medications Administered Discontinued Medications Generic Name Dose Route Start Last Admin Trade Name Freq PRN Reason Stop Dose Admin Hydralazine HCl 20 mg 07/08/24 00:17 07/08/24 00:39 Hydralazine Hcl 10 Mg Tablet PO 07/08/24 00:18 20 mg ONCE ONE Administration Protocol Medical Decision Making Medical Decision Making MDM Narrative: 68-year-old male with a history of CVA with subsequent aphasia, dysarthria, dysphagia and right hemiplegia now wheelchair-bound at baseline, hypertension, hyperlipidemia, hypertensive retinopathy, chronic kidney disease stage 3, schizophrenia, who presents from [facility] given concern for hypertension and hypoxia. Per EMS, the patient fell while transferring from his bed to the wheelchair. He dropped to the floor onto his bottom, there was no head strike there was no loss consciousness. The incident occurred at 4:30 p.m. yesterday. Prior to arrival, longterm report indicates that the patient was hypertensive to 163 systolic and that his ?oxygen was low?. Per the patient, he states they refused to give him his prescribed hydralazine today; the patient takes hydralazine 3 times a day, he only took his morning dose. At the patient has no physical concerns or complaints at this time, he does not understand why he was sent in for assessment. Problem: Prior stroke with deficits, psychiatric illness History: Per patient I have considered the following differential diagnoses: Rib fracture, pneumothorax, hemothorax, pneumonia, heart failure Plan: Per longterm report, the patient fell this afternoon while transferring from his bed to the wheelchair. This occurred at 4:30 p.m.. Unclear why he is being sent for medical assessment at 1 in the morning. They also noted that the patient was hypertensive in his oxygen was abnormally low. Patient indicates that they neglected to give him his prescribed hydralazine today, he is supposed to take it t.i.d., they gave only this morning. He is slightly hypertensive, we will give hydralazine. Furthermore, the patient is not hypoxic, he is between 95 and 96% on room air. Obtained a chest x-ray. There was no indication for the patient's assessment at this time, we will be transferring him back to the facility momentarily. I have independently reviewed the following tests: Chest x-ray: XR/XR chest 1V IMPRESSION: No active cardiopulmonary disease. Lung volumes are mildly diminished. Electronically signed by: Jose Juan Alexis MD 07/08/2024 12:33 AM [facility] Discharge Plan Discharge Clinical Impression: Hypertension Patient Disposition: Home, Self-Care Instructions: Chronic Hypertension (ED) Additional Instructions: The patient's blood pressure was minimally elevated here in the emergency department. He indicated to us that he was not administered his prescribed hydralazine; he is supposed to take that medication 3 times a day, he only received in the morning. He also was not hypoxic, we were given report that he was found to be hypoxic at your facility. He has been 95-96% on room air. We obtained a chest x-ray, it was normal. Prescriptions: No Action multivitamin Tablet 1 tab PO DAILY hydralazine 10 mg Tablet 10 mg PO TID sennosides [senna] 8.6 mg Tablet 8.6 mg PO DAILY PRN (Reason: Constipation) acetaminophen 325 mg Tablet 650 mg PO Q6H MDD 3g PRN (Reason: Fever Or Pain) metoprolol succinate 50 mg Tablet Extended Release 24 Hr 50 mg PO BID fluphenazine HCl 10 mg Tablet 10 mg PO DAILY lithium carbonate 450 mg Tablet Extended Release 450 mg PO DAILY amlodipine 10 mg Tablet 10 mg PO DAILY pantoprazole [Protonix] 40 mg Tablet,Delayed Release (Dr/Ec) 40 mg PO DAILY@0630 calcium carbonate 500 mg calcium (1,250 mg) Tablet,Chewable 500 mg PO QIDACHS Rx Instructions: with meals and at bedtime alum-mag hydroxide-simeth 200-200-20 mg/5 mL Suspension 30 ml PO QID PRN (Reason: GERD) Rx Instructions: administer after meals and at bedtime clozapine [Clozaril] 25 mg Tablet 75 mg PO BEDTIME eucalyptus-menthol Lozenge 1 niesha MUCOUS MEMBRANE Q4H PRN (Reason: Cough) nicotine (polacrilex) 2 mg Lozenge 2 mg BUCCAL Q1H PRN (Reason: Smoking Cessation) Asmanex Twisthaler 220 mcg/ actuation (14) Aerosol Powdr Breath Activated 1 inh INHALATION DAILY aspirin 81 mg Capsule 81 mg PO DAILY amoxicillin-pot clavulanate 875-125 mg Tablet 1 tab PO Q12H Qty: 6 0RF Print Language: Tristanian
[2024-07-08] MEDS: hydrALAZINE HCl 10 MG TABLET 20 MG PO (00:39)
[2024-07-08 00:47] VITALS: BP 143/104; PULSE 61; RESP 20
[2024-07-08 01:40] VITALS: BP 131/99; PULSE 60; RESP 20
[2024-07-08 01:55] VITALS: BP 131/99; PULSE 60; RESP 20; TEMP 36.7; O2SAT 96
== END 2024-07-08 02:48 | disposition home or self-care (01) ==
PROVIDERS: Emergency Provider Emergency Medicine; PCP Hospitalist
DX: I16.0 Hypertensive urgency (principal); R00.1 Bradycardia, unspecified; I44.0 Atrioventricular block, first degree; Z79.899 Other long term (current) drug therapy; Z87.891 Personal history of nicotine dependence; Z86.73 Personal history of transient ischemic attack (TIA), and cerebral infarction without residual deficits
CPT/HCPCS: 71045; 93005; 99284

== ENCOUNTER → 2024-07-07 23:57 | Outpatient (BNV) | payer MEDICARE, MEDICAID, SELFPAY | PROVIDERS: Emergency Provider Emergency Medicine; PCP Hospitalist; Visit Provider Internal Medicine Cardiovascular Disease | DX: R00.1 Bradycardia, unspecified (principal); I44.4 Left anterior fascicular block | CPT/HCPCS: 93010 ==

== ENCOUNTER 2024-10-05 22:45 | Emergency (ER) | payer MEDICARE, MEDICAID, SELFPAY ==
--- NOTE | ~2024-10-05 | XR_ITS ---
CLINICAL HISTORY: cough 1 view chest x-ray Comparison: CR/SR - XR CHEST 1V - 07/08/24 00:00 EST Findings: Somewhat low lung volumes. Normal size heart. No consolidation, significant pleural effusion or pneumothorax. Stable mild interstitial changes likely chronic. No acute fracture. IMPRESSION: 1. No acute findings. This document has been electronically signed by: Simi Jo MD on 10/06/2024 00:31:57
--- NOTE | ~2024-10-05 | CT_ITS ---
CLINICAL HISTORY: Stroke Protocol aphasia, r sided weakness CT head without contrast Comparison: None Findings: No intra-axial mass, midline shift, hydrocephalus, or acute hemorrhage. There is atrophy. Prominent bilateral supratentorial white matter hypodensities nonspecific but likely represent chronic small-vessel ischemic changes. Small hypodensities in the internal capsules bilaterally likely nonacute lacunar infarcts. Atherosclerotic vascular disease. There is no sinus or mastoid fluid. The orbits are within normal limits. No acute skull fracture. Temporomandibular joints are dislocated bilaterally. IMPRESSION: 1. No acute intracranial findings on CT. If clinically indicated follow-up brain MRI should be obtained. 2. Significant white matter hypodensities likely chronic small-vessel ischemic changes nonacute lacunar infarcts. This document has been electronically signed by: Simi Jo MD on 10/05/2024 23:35:56
--- NOTE | ~2024-10-05 | CT_ITS ---
CLINICAL HISTORY: Stroke Protocol, apahsia, r sided weakness CT angiography head and neck with contrast. 3D Postprocessing. Comparison: None Findings: CTA neck is limited by significant motion artifact at the level of the carotid bifurcations. Aortic arch and arch vessels are patent. Atherosclerotic plaque is demonstrated at both carotid bifurcations but stenosis can not be evaluated due to the motion artifact. More distally bilateral internal carotid arteries are patent with no significant stenosis. Bilateral vertebral arteries are patent and codominant and enhance normally. Bilateral external carotid arteries are patent. CTA brain is limited by motion artifact. Bilateral intracranial internal carotid arteries are patent and there is atherosclerotic vascular disease in the cavernous segments. Vertebral basilar junction is unremarkable and basilar artery enhances normally. Bilateral anterior, middle and posterior cerebral arteries are patent but evaluation of the branches is limited. No aneurysm. 5 mm right upper lobe noncalcified nodule. Otherwise lung apices are clear. No significant abnormality in soft tissues of the neck. No acute fracture. IMPRESSION: 1. CTA neck limited by motion artifact at the level of carotid bifurcations and stenosis can not be evaluated at this level. Otherwise neck vessels are patent. 2. CT angiography brain is limited and degraded by motion artifact. The main intracranial vessels are patent but arterial branches suboptimally evaluated. This document has been electronically signed by: Simi Jo MD on 10/05/2024 23:53:42
--- NOTE | 2024-10-05 22:49 | ECG_ITS ---
Test Reason : STROKE PROTOCOL Blood Pressure : */* mmHG Vent. Rate : 77 BPM Atrial Rate : 77 BPM P-R Int : 202 ms QRS Dur : 84 ms QT Int : 402 ms P-R-T Axes : 65 21 52 degrees QTcB Int : 454 ms Normal sinus rhythm Normal ECG When compared with ECG of 07-Jul-2024 23:57, No significant change was found Referred By: Garrett Montanez Electronically Signed By: CORINNA RIGGS
[2024-10-05 22:54] VITALS: BP 145/78; BP 147/89; PULSE 88; RESP 20; O2SAT 96; BMI 28.6
[2024-10-05 22:58] LABS: Glucose, Whole Blood 131 mg/dL (60-115)
[2024-10-05 23:02] LABS: Prothrombin Time Whole Bld POC 10.9 sec (11.1-13.5); ~PT, ~INR - Anti Coag Clinic 0.9 (0.9-1.1)
[2024-10-05] MEDS: iohexoL 350 MG/ML 100 ML INFUS..BTL 70 ML IV (23:15)
--- NOTE | 2024-10-05 23:27 | MHC.EDTECH ---
EKG delay due to procedure
--- NOTE | 2024-10-05 23:28 | ED.NEUROSD ---
HPI - Neuro Symptoms/Deficit General Chief Complaint: Stroke Stated Complaint: ? STROKE PER EMS, R SIDED WEAKNESS Time Seen by Provider: 10/05/24 22:48 Source: EMS and RN notes reviewed Mode of arrival: EMS Limitations: no limitations History of Present Illness ED Provider: HPI Narrative: Patient is 68 years old [facility] with history of right hemiparesis from the CVA, GERD, BPH, urinary and fecal incontinence, schizophrenia, chronic aphasia and dysphagia hypotension hyperlipidemia comes here for as the staff noticed patient is more confused and more slurred speech for last 2 hours on arrival patient noticed to been coughing no appreciable difference in the weakness noticed Related Data Home Medications ?Medication ?Instructions ?Recorded ?Confirmed acetaminophen 325 mg tablet 650 mg PO Q6H PRN Fever Or Pain 01/29/24 01/29/24 aluminum-mag hydroxide-simethicone 30 ml PO QID PRN GERD 01/29/24 01/29/24 200 mg-200 mg-20 mg/5 mL oral susp amlodipine 10 mg tablet 10 mg PO DAILY 01/29/24 01/29/24 aspirin 81 mg capsule 81 mg PO DAILY 01/29/24 01/29/24 calcium carbonate 500 mg PO QIDACHS 01/29/24 01/29/24 clozapine 25 mg tablet (Clozaril) 75 mg PO BEDTIME 01/29/24 01/29/24 eucalyptus-menthol oral mucosal 1 niesha mucous membrane Q4H PRN Cough 01/29/24 01/29/24 lozenge fluphenazine HCl 10 mg tablet 10 mg PO DAILY 01/29/24 01/29/24 hydralazine 10 mg tablet 10 mg PO TID 01/29/24 01/29/24 lithium carbonate 450 mg 450 mg PO DAILY 01/29/24 01/29/24 tablet,extended release metoprolol succinate 50 mg 50 mg PO BID 01/29/24 01/29/24 tablet,extended release 24 hr mometasone 220 mcg/actuation(14 1 inh inhalation DAILY 01/29/24 01/29/24 doses) breath activated powder inhaler (Asmanex Twisthaler) multivitamin 1 tab PO DAILY 01/29/24 01/29/24 nicotine (polacrilex) 2 mg buccal 2 mg buccal Q1H PRN Smoking 01/29/24 01/29/24 lozenge Cessation pantoprazole 40 mg tablet,delayed 40 mg PO DAILY@0630 01/29/24 01/29/24 release (Protonix) sennosides 8.6 mg tablet (senna) 8.6 mg PO DAILY PRN Constipation 01/29/24 01/29/24 Previous Rx's ?Medication ?Instructions ?Recorded amoxicillin 875 mg-potassium 1 tab PO Q12H #6 tabs 02/01/24 clavulanate 125 mg tablet Allergies Allergy/AdvReac Type Severity Reaction Status Date / Time codeine Allergy Unknown Unknown Verified 10/05/24 22:56 cephalexin [From Keflex] Allergy Unknown Verified 10/05/24 22:56 cocaine Allergy Unknown Verified 10/05/24 22:56 spironolactone Allergy Unknown Verified 10/05/24 22:56 Review of Systems Review of Systems: Yes all other systems are reviewed and are negative [facility] Past Medical History Medical History GERD (gastroesophageal reflux disease) Hypertensive retinopathy Hyperlipidemia Aphasia Dysphagia CVA (cerebral vascular accident) Hemiplegia of 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 Urinary and fecal incontinence BPH w urinary obs/LUTS Hypertension Social History Social History Housing: [facility] Alcohol intake: never Patient Tobacco Use Status: Former Tobacco user Substance Use Type: Marijuana service: No Physical Exam Vital Signs: Vital Signs: Last Vital Signs Temp 98.5 F 10/06/24 01:35 Pulse 89 10/06/24 01:35 Resp 14 10/06/24 01:35 BP 167/100 H 10/06/24 01:35 Pulse Ox 98 10/06/24 01:35 O2 Del Method Room Air 10/06/24 01:35 BMI result Body Mass Index 28.6 Appearance: Alert. Oriented X3. No acute distress. Eyes: PERRLA, No Nystagmus ENT: Pharynx normal. Oral Mucosa moist Neck: Normal inspection. Neck supple. CVS: Normal heart rate and rhythm. Pulses normal. Respiratory: No respiratory distress. Equal air entry bilateral, no wheezing/rales/rhonchi Abdomen: Soft and nontender. Bowel sounds are present, no mass palpable, no CVA tenderness Skin: Skin warm and dry. Normal skin color. Normal skin turgor. Extremities: No lower extremity edema. No calf tenderness Neuro: Oriented X 3. No motor deficit. No sensory deficit.No cerebellar signs , cranial nerves II-XII intact slow speech with fair comprehension Medications Administered Discontinued Medications Generic Name Dose Route Start Last Admin Trade Name Wiliam PRN Reason Stop Dose Admin Iohexol 70 ml 10/05/24 23:14 10/05/24 23:15 Iohexol 350 Mg/Ml 100 Ml Infus..Btl IV 10/05/24 23:15 70 ml ONCE ONE Administration Medical Decision Making Lab Data [facility] Lab Attestation statement: I reviewed the patient's lab results. 10/05/24 23:30 10/05/24 23:30 Labs: Lab Results 10/05/24 10/05/24 10/05/24 Range/Units 22:51 23:30 23:32 WBC 7.0 (4.8-10.8) X10*3/uL RBC 4.67 D (4.60-5.80) X10*6/uL Hgb 13.1 L (14.0-18.0) g/dl Hct 38.4 L (42.0-52.0) % MCV 82.2 (80.0-98.0) fL MCH 28.1 (27.0-33.0) pg MCHC 34.1 (31.0-36.0) g/dl RDW 14.4 (11.0-16.0) % Plt Count 187 D (160-400) X10*3/uL MPV 9.5 (9.4-12.4) fL Immature Gran % (Auto) 0.6 H (0.0-0.4) % Neut % (Auto) 68.4 (45-73) % Lymph % (Auto) 17.1 L (20-40) % Emmons % (Auto) 7.8 (2-11) % Eos % (Auto) 5.7 H (0-4) % Baso % (Auto) 0.4 (0-2) % Lymph # (Auto) 1.2 (1.2-4.9) X10*3/uL Emmons # (Auto) 0.6 (0.1-1.2) X10*3/uL Eos # (Auto) 0.4 (0.0-0.4) X10*3/uL Baso # (Auto) 0.0 (0.0-0.2) X10*3/uL Abs Immat Gran (auto) 0.04 H (0.00-0.03) X10*3/uL Absolute Neuts (auto) 4.8 (2.0-8.3) x10*3/uL Absolute Nucleated RBC 0.000 (0.0-0.012) X10*3/uL Nucleated RBC % (auto) 0.0 (0.0-0.2) /100WBC Smear Tech's Comments VERIFIED PT 10.1 L (10.9-12.4) SEC Whole Blood PT 10.9 L (11.1-13.5) sec INR 0.9 (0.9-1.1) Whole Blood INR 0.9 (0.9-1.1) APTT 32.7 (26.0-36.8) SEC Sodium 139 (135-145) mmol/L Potassium 4.2 (3.3-5.1) mmol/L Chloride 108 (96-108) mmol/L Carbon Dioxide 22 (22-29) mmol/L Anion Gap 13 (12-20) BUN 27 H (9-16) mg/dL Creatinine 1.44 H (0.5-1.4) mg/dL Estim Creat Clear Calc 57.3 Estimated GFR 48 POC Glucose 131 H (60-115) mg/dL Random Glucose 121 H (60-115) mg/dL Calcium 8.8 (8.4-10.2) mg/dL Troponin I High Sens 3.8 (<3.5-35.0) ng/L Triglycerides 221 H (<150) mg/dL Cholesterol 172 (<200) mg/dL LDL Cholesterol, Calc 96 (<100) mg/dL HDL Cholesterol 32 L (>40) mg/dL Urine Color Yellow Urine Appearance Clear Urine pH 7.0 (5.0-9.0) Ur Specific [place] 1.010 (1.005-1.025) Urine Protein Trace (Neg-Trace) mg/dL Urine Glucose (UA) Negative (Negative) mg/dL Urine Ketones Negative (Negative) mg/dL Urine Blood Negative (Negative) Urine Nitrite Negative (Negative) Ur Leukocyte Esterase Negative (Negative) Urine RBC 0-2 (0-2) /HPF Urine WBC 0-5 (0-5) /HPF Ur Squamous Epith Cells 0-2 (0-2) /HPF Urine Bacteria None Seen (None Seen) Hyaline Casts 0-2 (0-2) /LPF Influenza Type A (PCR) NEGATIVE (Negative) Influenza Type B (PCR) NEGATIVE (Negative) RSV RNA Qual (PCR) NEGATIVE (Negative) SARS-CoV-2 RNA (RT-PCR) NEGATIVE (Negative) NIH Stroke Scale Internal: Initial- Upon Arrival Level of Consciousness: Alert Level of Consciousness Questions: Answers both questions correctly Level of Consciousness Commands: Performs both tasks correctly Best Gaze: Normal Visual: No visual loss Facial Palsy: Normal Motor Arm (Right): No drift Motor Arm (Left): No drift Motor Leg (Right): No drift Motor Leg (Left): No drift Limb Ataxia: Absent Sensory: Normal Best Language: Mild to moderate aphasia Dysarthia: Normal Extinction and Inattention: No abnormality Score: 1 Discharge Plan Discharge Clinical Impression: Slurring of speech Patient Disposition: Xfer [facility] Transfer Details: Patient has previous stroke which causes dysarthria at this time CT scan is negative for stroke no acute weakness noticed no confusion noticed labs are stable follow up with PCP Instructions: Transient Ischemic Attack (ED) Additional Instructions: No evidence of any stroke noticed at this time Chest x-ray and COVID flu RSV negative CT head CTA head and neck also negative Follow up with your PCP Prescriptions: No Action multivitamin Tablet 1 tab PO DAILY hydralazine 10 mg Tablet 10 mg PO TID sennosides [senna] 8.6 mg Tablet 8.6 mg PO DAILY PRN (Reason: Constipation) acetaminophen 325 mg Tablet 650 mg PO Q6H MDD 3g PRN (Reason: Fever Or Pain) metoprolol succinate 50 mg Tablet Extended Release 24 Hr 50 mg PO BID fluphenazine HCl 10 mg Tablet 10 mg PO DAILY lithium carbonate 450 mg Tablet Extended Release 450 mg PO DAILY amlodipine 10 mg Tablet 10 mg PO DAILY pantoprazole [Protonix] 40 mg Tablet,Delayed Release (Dr/Ec) 40 mg PO DAILY@0630 calcium carbonate 500 mg calcium (1,250 mg) Tablet,Chewable 500 mg PO QIDACHS Rx Instructions: with meals and at bedtime alum-mag hydroxide-simeth 200-200-20 mg/5 mL Suspension 30 ml PO QID PRN (Reason: GERD) Rx Instructions: administer after meals and at bedtime clozapine [Clozaril] 25 mg Tablet 75 mg PO BEDTIME eucalyptus-menthol Lozenge 1 niesha MUCOUS MEMBRANE Q4H PRN (Reason: Cough) nicotine (polacrilex) 2 mg Lozenge 2 mg BUCCAL Q1H PRN (Reason: Smoking Cessation) Asmanex Twisthaler 220 mcg/ actuation (14) Aerosol Powdr Breath Activated 1 inh INHALATION DAILY aspirin 81 mg Capsule 81 mg PO DAILY amoxicillin-pot clavulanate 875-125 mg Tablet 1 tab PO Q12H Qty: 6 0RF Interventions: ED Discharge Assessment Last Done: 10/06/24 01:35 Discharge Date/Time: 10/06/24 01:36 Print Language: Persian
[2024-10-05 23:34] VITALS: TEMP 36.6
[2024-10-05 23:38] LABS: Basophils Percent Auto 0.4 % (0-2); Eosinophils Absolute Auto 0.4 X10*3/uL (0.0-0.4); Eosinophils Percent Auto 5.7 % (0-4); Hematocrit 38.4 % (42.0-52.0); Hemoglobin 13.1 g/dl (14.0-18.0); Imm Gran Abs Auto 0.04 X10*3/uL (0.00-0.03); Imm Gran Pct Auto 0.6 % (0.0-0.4); Lymphocytes Absolute Auto 1.2 X10*3/uL (1.2-4.9); Lymphocytes Percent Auto 17.1 % (20-40); Mean Corpuscular HGB Conc 34.1 g/dl (31.0-36.0); Mean Corpuscular Hemoglobin 28.1 pg (27.0-33.0); Mean Corpuscular Volume 82.2 fL (80.0-98.0); Mean Platelet Volume 9.5 fL (9.4-12.4); Monocytes Absolute Auto 0.6 X10*3/uL (0.1-1.2); Monocytes Percent Auto 7.8 % (2-11); Neutrophils Absolute Auto 4.8 x10*3/uL (2.0-8.3); Neutrophils Percent Auto 68.4 % (45-73); Platelet Count 187 X10*3/uL (160-400); Red Blood Count 4.67 X10*6/uL (4.60-5.80); Red Cell Distribution Width 14.4 % (11.0-16.0)
[2024-10-05 23:40] LABS: Appearance Urine Clear; Color Urine Yellow; Glucose Urine UA Negative (Negative); Leukocyte Esterase Urine Negative (Negative); Nitrite Urine Negative (Negative); Urine Blood Negative (Negative); Urine Ketones Negative (Negative); Urine Protein Trace mg/dL (Neg-Trace)
[2024-10-05 23:40] LABS: MANUAL DIFF FLAG SCAN
--- NOTE | 2024-10-05 23:42 | PC.NURSE ---
[facility], per staff pt having increased confusion and slurred speech. ems called stroke alert on pt. on arrival, pt taken to CT immediately. pt brought into room, pt noted to be a&ox4, following commands and able to urinate in urinal on own. pt noted to have medication in mouth, staff reports they had given him a tums prior to ems arrival. pt assisted with suctioning. 18G in left ac from ems. new iv established in right hand. pt has no complaints, pt rw=equesting water at this time. pt right eye noted to be red and blood shot, pt noted to have pin point pupils. aware and at bedside. vss.
[2024-10-05 23:44] LABS: INTERNATIONAL NORM RATIO 0.9 (0.9-1.1); Prothrombin Time 10.1 SEC (10.9-12.4)
[2024-10-05 23:44] LABS: Bacteria Urine None Seen (None Seen); Hyaline Casts Urine 0-2 /LPF (0-2); RBC Urine 0-2 /HPF (0-2); Squamous Epithelial Cell Urine 0-2 /HPF (0-2); WBC Urine 0-5 /HPF (0-5)
[2024-10-05 23:46] LABS: Partial Thromboplastin Time 32.7 SEC (26.0-36.8)
[2024-10-05 23:48] LABS: Stroke Lab Use COMPLETE
[2024-10-05 23:53] LABS: Anion Gap 13 (12-20); Blood Urea Nitrogen 27 mg/dL (9-16); Calcium 8.8 mg/dL (8.4-10.2); Carbon Dioxide 22 mmol/L (22-29); Chloride 108 mmol/L (96-108); Cholesterol 172 mg/dL (<200); Creatinine Clr Calc Pharmacy 57.3; Estimated Glomerular Filt Rate 48; Glucose Random 121 mg/dL (60-115); HDL Cholesterol 32 mg/dL (>40); LDL Cholesterol Calculated 96 mg/dL (<100); Potassium 4.2 mmol/L (3.3-5.1); Sodium 139 mmol/L (135-145); Triglycerides 221 mg/dL (<150)
[2024-10-05 23:58] LABS: Troponin-I High Sensitivity 3.8 ng/L (<3.5-35.0)
[2024-10-06 00:01] LABS: SLIDE REVIEW VERIFIED
[2024-10-06 00:15] LABS: Influenza A PCR NEGATIVE (Negative); Influenza B PCR NEGATIVE (Negative); Resp Syncy Virus RNA Qual PCR NEGATIVE (Negative); SARS COV2 PCR INHOUSE NEGATIVE (Negative)
--- NOTE | 2024-10-06 00:43 | PC.NURSE ---
Report given to Effie Servin RN at [facility].
--- NOTE | 2024-10-06 00:59 | PC.NURSE ---
pt requesting water. bedside swallow screen assessed and passed at this time. water given.
[2024-10-06 01:35] VITALS: BP 167/100; PULSE 89; RESP 14; TEMP 36.9; O2SAT 98
== END 2024-10-06 01:36 | disposition skilled nursing facility (03) ==
PROVIDERS: Emergency Provider Internal Medicine
DX: R47.81 Slurred speech (principal); R41.0 Disorientation, unspecified; R05.9 Cough, unspecified; R13.0 Aphagia; R29.701 NIHSS score 1; Z03.818 Encounter for observation for suspected exposure to other biological agents ruled out; Z79.899 Other long term (current) drug therapy; Z86.73 Personal history of transient ischemic attack (TIA), and cerebral infarction without residual deficits; Z87.891 Personal history of nicotine dependence
CPT/HCPCS: 0241U; 36415; 70450; 70496; 70498; 71045; 80048; 80061; 81001; 82947; 84484; 85025; 85610; 85730; 93005; 99285; Q9967

== ENCOUNTER → 2024-10-05 22:49 | Outpatient (BNV) | payer MEDICARE, MEDICAID, SELFPAY | PROVIDERS: Emergency Provider Internal Medicine; Visit Provider Internal Medicine | DX: R41.0 Disorientation, unspecified (principal); I69.351 Hemiplegia and hemiparesis following cerebral infarction affecting right dominant side | CPT/HCPCS: 93010 ==

== ENCOUNTER → 2024-10-05 22:49 | Outpatient (BNV) | payer MEDICARE, MEDICAID, SELFPAY | PROVIDERS: Emergency Provider Internal Medicine; Visit Provider Specialist | DX: I63.9 Cerebral infarction, unspecified (principal); R47.01 Aphasia; R53.1 Weakness; R90.82 White matter disease, unspecified | CPT/HCPCS: 70450; 70496; 70498 ==

== ENCOUNTER → 2024-10-06 | Outpatient (BNV) | payer MEDICARE, MEDICAID, SELFPAY | PROVIDERS: Emergency Provider Internal Medicine; Visit Provider Specialist | DX: R05.9 Cough, unspecified (principal) | CPT/HCPCS: 71045 ==